=== PATIENT | male | born 1970 | race Caucasian/White ===

== ENCOUNTER 2016-06-25 16:24 | Inpatient (IN) | payer MEDICAID, OTHER ==
[~2016-06-25] VITALS: Ht 165.1 cm; Wt 84.5 kg
--- NOTE | 2016-06-25 22:14 | ERA ---
ER Documentation Chief Complaint Date/Time DATE: 06/25/16 TIME: 22:12 Chief Complaint Right foot infection HPI The patient is a 45-year-old male, presenting to the ER because of chronic right foot infection for more than 3 months. There is right plantar foot ulceration for more than 3 months and he is taking antibiotic clindamycin without response. He now developed an ulcer between the right great toe and right second toe with foul-smelling purulent discharge, swollen and painful for the last 3 days. He went to see his physician who sent him to the ER. He has fever today, denies chills, neck pain, chest pain, abdominal pain, vomiting, dysuria, diarrhea. He does not smoke, drinks socially Past medical history: Diabetes mellitus Past surgical history: None ROS All systems reviewed and are negative except as per history of present illness. Medications Home Meds Reported Medications Amoxicillin/Potassium Clav (Amox-Clav 875-125 mg Tablet) 875-125 mg Tab, 1 TAB PO Q8, #20 TAB 06/25/16 Metformin Hcl* (Metformin Hcl*) 500 Mg Tablet, 500 MG PO WITH BREAKFAST DINNE, # 60 TAB 06/25/16 Glimepiride* (Glimepiride*) 2 Mg Tablet, 2 MG PO WITH BREAKFAST DINNE, TAB 06/25/16 Allergies Allergies: Coded Allergies: No Known Allergy (Unverified , 06/25/16) Physical Exam Vitals Vital Signs Date Time Temp Pulse Resp B/P Pulse Ox O2 Delivery O2 Flow Rate FiO2 06/25/16 23:25 98.3 91 20 119/72 97 Room Air 06/25/16 16:33 102.1 114 20 133/91 99 Physical Exam Const: No acute distress. Head: Atraumatic. Eyes: Normal Conjunctiva. ENT: Normal External Ears, Nose and Mouth. Neck: Full range of motion. No meningismus. Resp: Clear to auscultation bilaterally Cardio: Regular but tachycardic Abd: Soft, non distended, normal bowel sounds, non tender. Skin: No petechiae or rashes. Back: No midline or flank tenderness. Ext: There is a large plantar foot ulceration. There is an ulcer between the right great toe and right second toe with erythema, foul-smelling, purulent discharge. There is no calf tenderness Neur: Awake and alert. No focal deficit Psych: Normal Mood and Affect. Result Diagram: 06/25/16224906/25/163 Results 24 hrs Laboratory Tests Test 06/25/16 22:23 06/25/16 22:50 Alanine Aminotransferase (ALT/SGPT) 29IU/L Albumin 3.9g/dl Albumin/Globulin Ratio 0.92 Alkaline Phosphatase 93IU/L Anion Gap 16 Aspartate Amino Transf (AST/SGOT) 25IU/L Blood Urea Nitrogen 24mg/dl Calcium Level 9.4mg/dl Carbon Dioxide Level 27mmol/L Chloride Level 95mmol/L Creatinine 0.48mg/dl Direct Bilirubin 0.00mg/dl Globulin 4.20g/dl Glucose Level 310mg/dl Indirect Bilirubin 0.6mg/dl Lactic Acid Level 1.5mmol/L Potassium Level 3.7mmol/L Sodium Level 134mmol/L Total Bilirubin 0.6mg/dl Total Protein 8.1g/dl Troponin I < 0.012ng/ml Activated Partial Thromboplast Time 32.6Sec Basophils # 0.010^3/ul Basophils % 0.3% Eosinophils # 0.110^3/ul Eosinophils % 0.4% Erythrocyte Sedimentation Rate 67mm/Hr Hematocrit 43.5% Hemoglobin 15.1g/dl INR International Normalized Ratio 0.98 Lymphocytes # 2.710^3/ul Lymphocytes % 21.1% Mean Corpuscular Hemoglobin 31.7pg Mean Corpuscular Hemoglobin Concent 34.6g/dl Mean Corpuscular Volume 91.5fl Mean Platelet Volume 8.2fl Monocytes # 1.310^3/ul Monocytes % 10.5% Neutrophils # 8.510^3/ul Neutrophils % 67.7% Nucleated Red Blood Cells # 0.010^3/ul Nucleated Red Blood Cells % 0.0/100WBC Platelet Count 79337^3/UL Prothrombin Time 13.0Sec Prothrombin Time Ratio 1.0 Red Blood Count 4.7610^6/ul Red Cell Distribution Width 12.9% White Blood Count 12.610^3/ul Current Medications Medications (Trade) Dose Ordered Sig/Galen Route PRN Reason Start Time Stop Time Status Last Admin Dose Admin Acetaminophen 650 mg 650 mg ONCE ONCE PO 06/25/16 22:30 06/25/16 22:31 DC 06/25/16 22:48 Vancomycin HCl 250 ml @ 125 mls/hr ONCE IVPB 2/2/17 22:30 06/26/16 00:29 06/25/16 22:53 Piperacillin Sod/ Tazobactam Sod (Zosyn 3.375gm/ 100 ml (Pmx)) 100 ml @ 200 mls/hr ONCE ONCE IVPB 06/25/16 22:30 06/25/16 22:59 DC 06/25/16 22:48 Procedures/MDM [place] [id number] Radiology Main Line: [phone] DIAGNOSTIC IMAGING REPORT Patient: MIKEY CINTRON : 1970 Age: 45 Sex: M MR #: [id number] DOS: 06/25/162219 Ordering MD: DOLORES ARANDA MD Location: E/R Room/Bed: PROCEDURE: XR right foot. CLINICAL INDICATION: Sepsis TECHNIQUE: AP, lateral and oblique views of the right foot were obtained. COMPARISON: None. FINDINGS: Mineralization is within normal limits. No fracture or osseous lesion is identified. There is no evidence for dislocation. Joint spaces are preserved. Soft tissue swelling about the plantar forefoot is present with a concave lucent defect along the plantar soft tissues concerning for ulceration and soft tissue swelling predominate about the great toe. There is no evidence of periostitis or osteomyelitis. Atherosclerotic calcification of the interdigital arteries is noted . There is no evidence for radiopaque foreign body. RPTAT:HJJR IMPRESSION: Concern for a plantar ulceration with soft tissue swelling about the forefoot and great toe unable to exclude cellulitis without plain film evidence of periostitis or osteomyelitis of the right foot. Physician Cali Date Time Electronically viewed and signed by Physician Cali on 06/25/2016 23:23 JR/ CC: DOLORES ARANDA MD [place] [id number] Radiology Main Line: [phone] DIAGNOSTIC IMAGING REPORT Patient: MIKEY CINTRON : 1970 Age: 45 Sex: M MR #: [id number] DOS: 06/25/162219 Ordering MD: DOLORES ARANDA MD Location: E/R Room/Bed: PROCEDURE: XR Chest. CLINICAL INDICATION: Sepsis. TECHNIQUE: Portable AP upright view of the chest was obtained. COMPARISON: None. FINDINGS: The cardiomediastinal silhouette is within upper normal limits. The lungs are clear. There is no evidence for pleural effusion, pneumothorax or pulmonary vascular congestion. The osseous structures are intact with no evidence for acute abnormality. RPTAT:HJJR IMPRESSION: No evidence for acute intrathoracic pathology. Physician Cali Date Time Electronically viewed and signed by Physician Cali on 06/25/2016 23:22 JR/ CC: DOLORES ARANDA MD MEDICAL MAKING DECISION: The patient is a 45-year-old male, presenting with acute on chronic right foot cellulitis that failed outpatient therapy, suspicious for abscess and/or osteomyelitis due to elevated ESR. He was treated with Tylenol for fever, vancomycin IV, Zosyn IV for acute on chronic right foot cellulitis. The differential diagnoses considered include but are not limited to cellulitis, abscess, osteomyelitis, foreign body, gangrene EKG: Read by emergency physician Rate/Rhythm: Normal Sinus Rhythm 93 beats per min QRS, ST, T-waves: No ST elevation, no T wave inversion, LVH Impression: Abnormal EKG Departure Diagnosis: Primary Impression: Cellulitis of right foot Condition: Stable Comments I discussed the findings with the patient. I discussed the patient with the on- call hospitalist Dr Moreno who was made aware of the lab, the treatment, the patient condition. The patient is admitted to [facility] at 11:40 PM The patient's blood pressure was elevated (>120/80) but appears stable without evidence of hypertension emergency or urgency. The patient was counseled about the risks of hypertension and urged to pursue outpatient monitoring and therapy within a week after discharge with their primary care physician. DOLORES ARANDA MD Jun 25, 2016 22:14
[2016-06-25] MEDS ORDERED: ACETAMINOPHEN 325 MG TAB PO ONE (22:30)
[2016-06-25] MEDS ORDERED: PIPER-TAZO 3.375 GM IV (PMX) 100 ML IVPB ONE (22:30)
[2016-06-25] MEDS ORDERED: VANCOMYCIN 1 GM (PMX) 250 ML IVPB SCH (22:30)
[2016-06-25] MEDS ORDERED: GLIM2TAB PO (22:35)
[2016-06-25] MEDS ORDERED: METF-382 PO (22:36)
[2016-06-25] MEDS ORDERED: AMOX1TAB10 PO (22:37)
[2016-06-25 23:08] LABS: ALBUMIN 3.9 g/dl (3.3-4.9); CHLORIDE 95 mmol/L (97-110); POTASSIUM 3.7 mmol/L (3.5-5.1); SODIUM 134 mmol/L (135-144)
[2016-06-25 23:08] LABS: INR 0.98; PARTIAL THROMBOPLASTIN TIME 32.6 Sec (25.0-35.0)
[2016-06-25 23:11] LABS: ALANINE AMINOTRANSFERASE 29 IU/L (13-69); ALBUMIN/GLOBULIN RATIO 0.92; ALKALINE PHOSPHATASE 93 IU/L (42-121); ANION GAP 16 (8-16); ASPARTATE AMINO TRANSFERASE 25 IU/L (15-46); BILIRUBIN,INDIRECT 0.6 mg/dl (0-1.1); BILIRUBIN,TOTAL 0.6 mg/dl (0.2-1.3); BLOOD UREA NITROGEN 24 mg/dl (7-20); CALCIUM 9.4 mg/dl (8.4-10.2); CARBON DIOXIDE 27 mmol/L (21-31); CREATININE 0.48 mg/dl (0.61-1.24); GLUCOSE 310 mg/dl (70-220); TOTAL PROTEIN 8.1 g/dl (6.1-8.1)
[2016-06-25 23:21] LABS: BASOPHILS % 0.3 % (0.0-2.0); EOSINOPHILS # 0.1 10^3/ul (0.0-0.5); EOSINOPHILS % 0.4 % (0.0-7.0); HEMATOCRIT 43.5 % (42.0-52.0); HEMOGLOBIN 15.1 g/dl (14.0-18.0); LYMPHOCYTES # 2.7 10^3/ul (0.8-2.9); LYMPHOCYTES % 21.1 % (15.0-51.0); MEAN CORPUSCULAR HEMOGLOBIN 31.7 pg (29.0-33.0); MEAN CORPUSCULAR HGB CONC 34.6 g/dl (32.0-37.0); MEAN CORPUSCULAR VOLUME 91.5 fl (82.0-101.0); MEAN PLATELET VOLUME 8.2 fl (7.4-10.4); MONOCYTE # 1.3 10^3/ul (0.3-0.9); MONOCYTES % 10.5 % (0.0-11.0); NEUTROPHIL # 8.5 10^3/ul (1.6-7.5); NEUTROPHILS % 67.7 % (39.0-77.0); PLATELET COUNT 213 10^3/UL (140-440); RED BLOOD COUNT 4.76 10^6/ul (4.70-6.10); RED CELL DISTRIBUTION WIDTH 12.9 % (11.5-14.5); UNCORRECTED WBC 12.6 10^3/ul (4.8-10.8); WHITE BLOOD COUNT 12.6 10^3/ul (4.8-10.8)
[2016-06-25 23:22] LABS: CONDITION 1
--- NOTE | 2016-06-25 23:22 | RADRPT ---
PROCEDURE: XR Chest. CLINICAL INDICATION: Sepsis. TECHNIQUE: Portable AP upright view of the chest was obtained. COMPARISON: None. FINDINGS: The cardiomediastinal silhouette is within upper normal limits. The lungs are clear. There is no e vidence for pleural effusion, pneumothorax or pulmonary vascular congestion. The osseous structures are intact with no evidence for acute abnormality. RPTAT:HJJR IMPRESSION: No evidence for acute intrathoracic pathology. Physician Cali Date Time Electronically viewed and signed by Physician Cali on 06/25/2016 23:22 JR/
--- NOTE | 2016-06-25 23:23 | RADRPT ---
PROCEDURE: XR right foot. CLINICAL INDICATION: Sepsis TECHNIQUE: AP, lateral and oblique views of the right foot were obtained. COMPARISON: None. FINDINGS: Mineralization is within normal limits. No fracture or osseous lesion is identified. There is no e vidence for dislocation. Joint spaces are preserved. Soft tissue swelling about the plantar forefo ot is present with a concave lucent defect along the plantar soft tissues concerning for ulceration and soft tissue swelling predominate about the great toe. There is no evidence of periostitis or os teomyelitis. Atherosclerotic calcification of the interdigital arteries is noted . There is no evid ence for radiopaque foreign body. RPTAT:HJJR IMPRESSION: Concern for a plantar ulceration with soft tissue swelling about the forefoot and great toe unable t o exclude cellulitis without plain film evidence of periostitis or osteomyelitis of the right foot. Physician Cali Date Time Electronically viewed and signed by Physician Cali on 06/25/2016 23:23 /
[2016-06-25 23:29] LABS: TROPONIN-I < 0.012 ng/ml (0.00-0.12)
[2016-06-26 00:34] VITALS: TEMP 98.6
[2016-06-26 00:56] LABS: ADD UMIC YES; URINE BILIRUBIN (Dip) NEGATIVE (NEGATIVE); URINE BLOOD (Dip) 3+ (NEGATIVE); URINE COLOR YELLOW (YELLOW); URINE GLUCOSE (Dip) >=1000 % (NEGATIVE); URINE KETONES (Dip) 40 (NEGATIVE); URINE LEUKOCYTE ESTERASE (Dip) TRACE (NEGATIVE); URINE NITRITE (Dip) NEGATIVE (NEGATIVE); URINE TOTAL PROTEIN (Dip) 2+ (NEGATIVE); URINE UROBILINOGEN (Dip) 1.0 E.U./dL (0.1-1.0)
[2016-06-26 01:09] LABS: BACTERIA,URINE FEW; SQUAMOUS EPITHELIAL CELL,UR MODERATE
[2016-06-26 01:26] VITALS: Ht 165.1 cm; Wt 84.5 kg
[2016-06-26 01:37] VITALS: BP 129/79; RESP 18
[2016-06-26] MEDS ORDERED: ACCUCHECK XX SCH (02:00)
[2016-06-26] MEDS ORDERED: ACETAMINOPHEN 325 MG TAB PO PRN (02:00)
[2016-06-26] MEDS ORDERED: VANCOMYCIN IV PER PHARMACY XX SCH (02:00)
[2016-06-26] MEDS ORDERED: DEXTROSE 50% 50 ML SYRINGE IV PRN ×2 (02:00)
[2016-06-26] MEDS ORDERED: GLUCAGON 1 MG INJ IM PRN (02:00)
[2016-06-26] MEDS: ACCUCHECK XX SCH (02:00)
[2016-06-26] MEDS ORDERED: GLUCOSE GEL 15 GRAM TUBE BUCCAL PRN (02:00)
[2016-06-26] MEDS ORDERED: GLUCOSE GEL 15 GRAM TUBE PO PRN ×2 (02:00)
[2016-06-26] MEDS ORDERED: ZOLPIDEM 5 MG TAB PO PRN (02:00)
[2016-06-26] MEDS: CEFEPIME 1GM/50 ML (PMX) 50 ML IVPB SCH ×3 (02:24→21:06)
[2016-06-26] MEDS: INSULIN GLARGINE [LANtus] 3 ML PEN SC SCH ×2 (02:30→21:01)
[2016-06-26] MEDS ORDERED: INSULIN ASPART [NOVOLOG] 3 ML PEN SC ONE ×2 (02:30)
[2016-06-26 05:23] LABS: BASOPHILS % 0.3 % (0.0-2.0); EOSINOPHILS # 0.1 10^3/ul (0.0-0.5); EOSINOPHILS % 0.7 % (0.0-7.0); HEMATOCRIT 40.2 % (42.0-52.0); LYMPHOCYTES # 2.6 10^3/ul (0.8-2.9); LYMPHOCYTES % 21.7 % (15.0-51.0); MEAN CORPUSCULAR HGB CONC 34.8 g/dl (32.0-37.0); MEAN CORPUSCULAR VOLUME 92.1 fl (82.0-101.0); MEAN PLATELET VOLUME 7.9 fl (7.4-10.4); MONOCYTE # 1.4 10^3/ul (0.3-0.9); MONOCYTES % 12.3 % (0.0-11.0); NEUTROPHIL # 7.7 10^3/ul (1.6-7.5); PLATELET COUNT 201 10^3/UL (140-440); RED BLOOD COUNT 4.36 10^6/ul (4.70-6.10); RED CELL DISTRIBUTION WIDTH 12.9 % (11.5-14.5); UNCORRECTED WBC 11.8 10^3/ul (4.8-10.8); WHITE BLOOD COUNT 11.8 10^3/ul (4.8-10.8)
[2016-06-26] MEDS: VANCOMYCIN 1.25 GM in SOD CHLORIDE 0.9% 250 ML IVPB SCH ×3 (05:31→22:36)
[2016-06-26 05:42] LABS: ALBUMIN/GLOBULIN RATIO 0.93
[2016-06-26 05:59] LABS: BILIRUBIN,INDIRECT 0.6 mg/dl (0-1.1); BILIRUBIN,TOTAL 0.6 mg/dl (0.2-1.3); CALCIUM 8.8 mg/dl (8.4-10.2); CREATININE 0.45 mg/dl (0.61-1.24); POTASSIUM 3.5 mmol/L (3.5-5.1); TOTAL PROTEIN 6.2 g/dl (6.1-8.1)
[2016-06-26 06:24] LABS: CONDITION 1
[2016-06-26 08:31] VITALS: BP 147/86; RESP 20
[2016-06-26] MEDS: INSULIN ASPART [NOVOLOG] 3 ML PEN SC SCH ×7 (09:47→21:03)
[2016-06-26] MEDS: HEPARIN 5,000 UNIT/0.5 ML SYG SC SCH ×2 (09:49→21:02)
--- NOTE | 2016-06-26 10:06 | HP ---
Date/Time of Note Date/Time of Note DATE: 06/26/16 TIME: 10:01 Assessment/Plan Lines/Catheters IV Catheter Type (from Nrsg): Saline Lock Assessment/Plan Assessment/Plan IMPRESSION 1. Sepsis 2/2 right foot cellulitis/ulcer 2. Diabetes PLAN Abx ID consult Pain mgmt ID consult f/u culture results Insulin for Diabetes HPI/ROS Admit Date/Time Admit Date/Time Jun 25, 2016 at 23:43 Hx of Present Illness The patient is a 45-year-old male, presenting to the ER because of chronic right foot infection for more than 3 months. There is right plantar foot ulceration for more than 3 months and he is taking antibiotic clindamycin without response. He now developed an ulcer between the right great toe and right second toe with foul-smelling purulent discharge, swollen and painful for the last 3 days. He went to see his physician who sent him to the ER. He has fever today, denies chills, neck pain, chest pain, abdominal pain, vomiting, dysuria, diarrhea. IN ER: He was febrile with a temp of 102 and his WBC was 12K. Right foot xray showed Concern for a plantar ulceration with soft tissue swelling about the forefoot and great toe unable to exclude cellulitis without plain film evidence of periostitis or osteomyelitis of the right foot. PMH/Family/Social Social History Smoking Status: Never smoker Exam/Review of Systems Vital Signs Vitals Vital Signs Date Time Temp Pulse Resp B/P Pulse Ox O2 Delivery O2 Flow Rate FiO2 06/26/16 08:31 98.6 86 20 147/86 98 06/26/16 00:34 Room Air Intake and Output 06/25/16 06/25/16 06/26/16 15:00 23:00 07:00 Intake Total 300 ml Balance 300 ml Exam Constitutional: alert, oriented, well developed Head: atraumatic, normocephalic Eyes: EOMI, PERRL Respiratory: clear to auscultation, normal air movement Cardiovascular: other (tavhycardic) Gastrointestinal: non-tender, soft Extremities: other (right foot swelling, ulceration) Labs Result Diagram: 06/26/1640906/26/16409 Medications Medications Current Medications Cefepime HCl (Maxipime 1gm/50 ml (Pmx)) 50 ml @ 100 mls/hr Q12 IVPB Last administered on 06/26/16 02:24; Admin Dose 100 MLS/HR; Start 06/26/16 at 02:00 Heparin Sodium (Porcine) (Heparin (5000 Units/0.5 ml)) 5,000 unit BID SC Last administered on 06/26/16 09:49; Admin Dose 5,000 UNIT; Start 06/26/16 at 09:00 Zolpidem Tartrate (Ambien) 10 mg HS PRN PO INSOMNIA; Start 06/26/16 at 02:00 Acetaminophen (Tylenol Tab) 650 mg Q6H PRN PO PAIN AND OR ELEVATED TEMP; Start 06/26/16 at 02:00 Insulin Glargine (Lantus) 20 unit DAILY@20 SC Last administered on 06/26/16 02: 30; Admin Dose 20 UNIT; Start 06/26/16 at 02:00 Diagnostic Test (Pha) 1 ea 1 ea 02 XX ; Start 06/26/16 at 02:00 Vancomycin HCl/ Sodium Chloride (Vancocin/NS) 250 ml @ 83.333 mls/ hr Q8H IVPB Last administered on 06/26/16 05:31; Admin Dose 83.333 MLS/HR; Start 06/26/16 at 06:00 Miscellaneous Information 1 ea NOTE XX ; Start 06/26/16 at 02:00 Glucose (Glutose) 15 gm Q15M PRN PO DECREASED GLUCOSE; Start 06/26/16 at 02:00 Glucose (Glutose) 22.5 gm Q15M PRN PO DECREASED GLUCOSE; Start 06/26/16 at 02:00 Dextrose (D50w Syringe) 25 ml Q15M PRN IV DECREASED GLUCOSE; Start 06/26/16 at 02:00 Dextrose (D50w Syringe) 50 ml Q15M PRN IV DECREASED GLUCOSE; Start 06/26/16 at 02:00 Glucagon (Glucagen) 1 mg Q15M PRN IM DECREASED GLUCOSE; Start 06/26/16 at 02:00 Glucose (Glutose) 15 gm Q15M PRN BUCCAL DECREASED GLUCOSE; Start 06/26/16 at 02: 00 Influenza Virus Vaccine (Fluzone) 0.5 ml ONCE ONCE IM* ; Start 06/28/16 at 09:00 ; Stop 06/28/16 at 09:01 ANNMARIE HUBER MD Jun 26, 2016 10:06
--- NOTE | 2016-06-26 16:41 | PN ---
Date/Time of Note Date/Time of Note DATE: 06/26/16 TIME: 16:25 Assessment/Plan VTE Prophylaxis VTE Prophylaxis Intervention: heparin Lines/Catheters IV Catheter Type (from Nrsg): Peripheral IV Assessment/Plan Assessment/Plan 1. Right foot cellulitis/ulcer, on antibiotics, Dr. Tineo consult 2. Diabetes mellitus, on ISS and lantus Subjective 24 Hr Interval Summary Free Text/Dictation afebrile Exam/Review of Systems Vital Signs Vitals Vital Signs Date Time Temp Pulse Resp B/P Pulse Ox O2 Delivery O2 Flow Rate FiO2 06/26/16 08:31 98.6 86 20 147/86 98 06/26/16 00:34 Room Air Intake and Output 06/25/16 06/25/16 06/26/16 15:00 23:00 07:00 Intake Total 300 ml Balance 300 ml Exam Constitutional: alert, oriented, well developed Psych: nl mood/affect, no complaints Head: atraumatic, normocephalic Eyes: EOMI, nl conjunctiva, nl lids ENMT: nl external ears & nose, nl lips & teeth, nl nasal mucosa & septum Neck: non-tender, supple Respiratory: clear to auscultation, normal air movement, No congested cough, No crackles/rales, No diminished breath sounds, No intercostal retraction, No labored breathing, No respirations, No tactile fremitus, No wheezing Cardiovascular: nl pulses, regular rate and rhythm, No S3, No S4, No bruits, No diastolic murmur, No edema, No gallop, No irregular rhythm, No jugular venous distention (JVD), No murmurs/extra sounds, No rub, No systolic murmur Gastrointestinal: nl liver, spleen, non-tender, soft, No ascites, No bowel sounds, No distended, No firm, No hepatomegaly, No mass , No rebound or guarding, No splenomegaly, No surgical scars, No tender Musculoskeletal: other (right foot wound) Extremities: other (right foot wound) Neurological: DIRECTOR MEDICAL II-XII intact, nl mental status, nl speech, nl strength Skin: nl turgor, rash or lesions Lymph: nl lymph nodes Results Result Diagram: 06/26/16 0410 06/26/16 0410 Results 24 hrs Laboratory Tests Test 06/25/16 22:23 06/25/16 22:50 06/26/16 00:20 06/26/16 01:32 Alanine Aminotransferase (ALT/SGPT) 29 Albumin 3.9 Albumin/Globulin Ratio 0.92 Alkaline Phosphatase 93 Anion Gap 16 Aspartate Amino Transf (AST/SGOT) 25 Blood Urea Nitrogen 24 H Calcium Level 9.4 Carbon Dioxide Level 27 Chloride Level 95 L Creatinine 0.48 L Direct Bilirubin 0.00 Globulin 4.20 H Glucose Level 310 H Indirect Bilirubin 0.6 Lactic Acid Level 1.5 Potassium Level 3.7 Sodium Level 134 L Total Bilirubin 0.6 Total Protein 8.1 Troponin I < 0.012 Activated Partial Thromboplast Time 32.6 Basophils # 0.0 Basophils % 0.3 Eosinophils # 0.1 Eosinophils % 0.4 Erythrocyte Sedimentation Rate 67 H Hematocrit 43.5 Hemoglobin 15.1 INR International Normalized Ratio 0.98 Lymphocytes # 2.7 Lymphocytes % 21.1 Mean Corpuscular Hemoglobin 31.7 Mean Corpuscular Hemoglobin Concent 34.6 Mean Corpuscular Volume 91.5 Mean Platelet Volume 8.2 Monocytes # 1.3 H Monocytes % 10.5 Neutrophils # 8.5 H Neutrophils % 67.7 Nucleated Red Blood Cells # 0.0 Nucleated Red Blood Cells % 0.0 Platelet Count 213 Prothrombin Time 13.0 Prothrombin Time Ratio 1.0 Red Blood Count 4.76 Red Cell Distribution Width 12.9 White Blood Count 12.6 H Urine Bacteria FEW Urine Bilirubin NEGATIVE Urine Clarity HAZY Urine Color YELLOW Urine Glucose >=1000 Urine Hemoglobin 3+ H Urine Ketones 40 Urine Leukocyte Esterase TRACE H Urine Microscopic RBC 5-10 Urine Microscopic WBC 5-10 Urine Nitrite NEGATIVE Urine Specific [place] 1.025 Urine Squamous Epithelial Cells MODERATE Urine Total Protein 2+ H Urine Urobilinogen 1.0 E.U./dL Urine pH 5.5 Bedside Glucose 265 H Test 06/26/16 01:55 06/26/16 04:10 06/26/16 07:38 06/26/16 11:58 Lactic Acid Level 1.1 1.3 Alanine Aminotransferase (ALT/SGPT) 30 Albumin 3.0 L Albumin/Globulin Ratio 0.93 Alkaline Phosphatase 67 Anion Gap 16 Aspartate Amino Transf (AST/SGOT) 18 Basophils # 0.0 Basophils % 0.3 Blood Urea Nitrogen 22 H Calcium Level 8.8 Carbon Dioxide Level 27 Chloride Level 99 Creatinine 0.45 L Direct Bilirubin 0.00 Eosinophils # 0.1 Eosinophils % 0.7 Globulin 3.20 Glucose Level 239 H Hematocrit 40.2 L Hemoglobin 14.0 Hemoglobin A1c 10.4 H Indirect Bilirubin 0.6 Lymphocytes # 2.6 Lymphocytes % 21.7 Mean Corpuscular Hemoglobin 32.0 Mean Corpuscular Hemoglobin Concent 34.8 Mean Corpuscular Volume 92.1 Mean Platelet Volume 7.9 Monocytes # 1.4 H Monocytes % 12.3 H Neutrophils # 7.7 H Neutrophils % 65.0 Nucleated Red Blood Cells # 0.0 Nucleated Red Blood Cells % 0.0 Platelet Count 201 Potassium Level 3.5 Red Blood Count 4.36 L Red Cell Distribution Width 12.9 Sodium Level 138 Total Bilirubin 0.6 Total Protein 6.2 # White Blood Count 11.8 H Bedside Glucose 247 H 305 H Medications Medications Current Medications Cefepime HCl (Maxipime 1gm/50 ml (Pmx)) 50 ml @ 100 mls/hr Q12 IVPB Last administered on 06/26/16 10:01; Admin Dose 100 MLS/HR; Start 06/26/16 at 02:00 Heparin Sodium (Porcine) (Heparin (5000 Units/0.5 ml)) 5,000 unit BID SC Last administered on 06/26/16 09:49; Admin Dose 5,000 UNIT; Start 06/26/16 at 09:00 Zolpidem Tartrate (Ambien) 10 mg HS PRN PO INSOMNIA; Start 06/26/16 at 02:00 Acetaminophen (Tylenol Tab) 650 mg Q6H PRN PO PAIN AND OR ELEVATED TEMP; Start 06/26/16 at 02:00 Insulin Glargine (Lantus) 20 unit DAILY@20 SC Last administered on 06/26/16 02: 30; Admin Dose 20 UNIT; Start 06/26/16 at 02:00 Diagnostic Test (Pha) 1 ea 1 ea 02 XX ; Start 06/26/16 at 02:00 Vancomycin HCl/ Sodium Chloride (Vancocin/NS) 250 ml @ 83.333 mls/ hr Q8H IVPB Last administered on 06/26/16 13:17; Admin Dose 83.333 MLS/HR; Start 06/26/16 at 06:00 Miscellaneous Information 1 ea NOTE XX ; Start 06/26/16 at 02:00 Glucose (Glutose) 15 gm Q15M PRN PO DECREASED GLUCOSE; Start 06/26/16 at 02:00 Glucose (Glutose) 22.5 gm Q15M PRN PO DECREASED GLUCOSE; Start 06/26/16 at 02:00 Dextrose (D50w Syringe) 25 ml Q15M PRN IV DECREASED GLUCOSE; Start 06/26/16 at 02:00 Dextrose (D50w Syringe) 50 ml Q15M PRN IV DECREASED GLUCOSE; Start 06/26/16 at 02:00 Glucagon (Glucagen) 1 mg Q15M PRN IM DECREASED GLUCOSE; Start 06/26/16 at 02:00 Glucose (Glutose) 15 gm Q15M PRN BUCCAL DECREASED GLUCOSE; Start 06/26/16 at 02: 00 Influenza Virus Vaccine (Fluzone) 0.5 ml ONCE ONCE IM* ; Start 06/28/16 at 09:00 ; Stop 06/28/16 at 09:01 Miscellaneous Information (*Rx Drug Level Order Reminder*) VANCO TROUGH @ 0, 500 ON... ONCE ONCE XX ; Start 06/27/16 at 05:00; Stop 06/27/16 at 05:01 ENMA SELBY MD Jun 26, 2016 16:35
[2016-06-26 20:37] VITALS: BP 133/84; RESP 19
[2016-06-27] MEDS: ACCUCHECK XX SCH (02:00)
[2016-06-27] MEDS: VANCOMYCIN 1.5 GM in SOD CHLORIDE 0.9% 250 ML IVPB SCH ×3 (06:29→21:43)
--- NOTE | 2016-06-27 07:29 | CONS ---
DATE OF ADMISSION: 06/25/2016 DATE OF CONSULTATION: 06/26/2016 TYPE OF CONSULTATION: Infectious Disease. REASON FOR CONSULTATION: Antibiotic management. HISTORY OF PRESENT ILLNESS: Emery Santoyo is a 45-year-old male who presented to the emerge ncy room with chronic right foot infection and is being seen for antibiotic management. His problems include: 1. Adult-onset diabetes mellitus, insulin-dependent. 2. Chronic foot infection which he has had for more than 3 months. Patient has a right plantar foot ulceration. He was taking clindamycin without response. He has now developed an ulcer of the right great toe and right second toe with foul smelling purulent drainage , swollen and painful for the last 3 days. He has fevers today. He does not having any chills, supriya st pain, abdominal pain, nausea or vomiting. In the emergency room, his temperature was 102. His white count was 12.6, H and H 15.1 and 43.5, an d platelet count of 213,000. Today, his white count is 11.8. His BUN and creatinine are 22/0.45. His urine is trace leukocyte esterase, 5 to 10 white cells per high-power field, his chest x-ray alireza ws no evidence for pathology. His x-ray of the foot shows concern for plantar ulceration with soft tissue swelling about the forefoot and great toe. Unable to exclude cellulitis with plain film evid ence or periostitis or osteomyelitis of the right foot. PAST MEDICAL HISTORY: Operations as outlined. FAMILY HISTORY: Noncontributory. SOCIAL HISTORY: Does not smoke, drink or abuse drugs. ALLERGIES: NONE TO PENICILLIN, SULFA OR FOODS. MEDICATIONS: Per chart, reviewed. REVIEW OF SYSTEMS: As per HPI. PHYSICAL EXAMINATION: GENERAL: The patient is a well-developed, well-nourished male, alert, responsive, in no acute distr ess. VITAL SIGNS: Stable. He is afebrile. SKIN: Without generalized rash. HEENT: Within normal limits. NECK: Supple. LYMPH NODES: None palpable. CHEST: Decreased breath sounds at the bases. HEART: Without murmur or gallop. ABDOMEN: Soft, nontender, without organosplenomegaly or masses. EXTREMITIES: Without cyanosis, clubbing, or edema. RECTAL AND GENITAL: Deferred. SKIN: As noted, he has a plantar ulcer of the right foot with ulceration between the right great toe and right second toe with foul- smelling purulent discharge. IMPRESSION AND PLAN: The patient was begun on vancomycin and cefepime. He probably could use an MR I to delineate whether he has any evidence of osteomyelitis. His Gram stain of foot is pending. Cu lture is pending. I will dictate my findings to the hospitalists. He should be seen by podiatry as well. Dictated By: RUDI POMPA MD, JD/PEDRO Conf#: [id number] DID#: [id number]
[2016-06-27 08:14] VITALS: BP 131/79; RESP 21
[2016-06-27] MEDS: HYDROCODONE/APAP (5/325) TAB PO PRN (08:51)
[2016-06-27] MEDS: HEPARIN 5,000 UNIT/0.5 ML SYG SC SCH ×2 (08:51→20:19)
[2016-06-27] MEDS: INSULIN ASPART [NOVOLOG] 3 ML PEN SC SCH ×7 (08:52→20:19)
[2016-06-27] MEDS: CEFEPIME 1GM/50 ML (PMX) 50 ML IVPB SCH (09:00)
[2016-06-27] MEDS: FLUCONAZOLE 100 MG TAB PO SCH (14:04)
--- NOTE | 2016-06-27 14:46 | PN ---
Date/Time of Note Date/Time of Note DATE: 06/27/16 TIME: 14:44 Assessment/Plan VTE Prophylaxis VTE Prophylaxis Intervention: other Lines/Catheters IV Catheter Type (from Nrs): Saline Lock Assessment/Plan Problems: (1) Cellulitis of right foot Status: Acute Assessment/Plan Diabetes mellitus type 2; adjusting regimen to get under control. Please note part of this is due to the loculated infection in the right foot Subjective 24 Hr Interval Summary Constitutional: no complaints (Denies fever chills or sweats) Exam/Review of Systems Vital Signs Vitals Vital Signs Date Time Temp Pulse Resp B/P Pulse Ox O2 Delivery O2 Flow Rate FiO2 06/27/16 08:14 98.9 88 21 131/79 94 06/26/16 00:34 Room Air Intake and Output 06/26/16 06/26/16 06/27/16 15:00 23:00 07:00 Intake Total 1220 ml 450 ml Balance 1220 ml 450 ml Exam Constitutional: alert, oriented Neck: non-tender, supple Respiratory: clear to auscultation, normal air movement Cardiovascular: nl pulses, regular rate and rhythm Gastrointestinal: nl liver, spleen, non-tender, soft Results Result Diagram: 06/26/16 0410 06/26/16 0410 Results 24 hrs Laboratory Tests Test 06/26/16 16:48 06/26/16 20:54 06/27/16 02:15 06/27/16 05:08 Bedside Glucose 295 H 240 H 240 H Vancomycin Level Trough 7.6 L Test 06/27/16 07:43 06/27/16 11:16 Bedside Glucose 212 317 H Medications Medications Current Medications Cefepime HCl (Maxipime 1gm/50 ml (Pmx)) 50 ml @ 100 mls/hr Q12 IVPB Last administered on 06/27/16 09:00; Admin Dose 100 MLS/HR; Start 06/26/16 at 02:00 Heparin Sodium (Porcine) (Heparin (5000 Units/0.5 ml)) 5,000 unit BID SC Last administered on 06/27/16 08:51; Admin Dose 5,000 UNIT; Start 06/26/16 at 09:00 Zolpidem Tartrate (Ambien) 10 mg HS PRN PO INSOMNIA; Start 06/26/16 at 02:00 Acetaminophen (Tylenol Tab) 650 mg Q6H PRN PO PAIN AND OR ELEVATED TEMP; Start 06/26/16 at 02:00 Insulin Glargine (Lantus) 20 unit DAILY@20 SC Last administered on 06/26/16 21: 01; Admin Dose 20 UNIT; Start 06/26/16 at 02:00 Diagnostic Test (Pha) (Accucheck) 1 ea 02 XX Last administered on 06/27/16 02: 00; Admin Dose 1 EA; Start 06/26/16 at 02:00 Miscellaneous Information 1 ea NOTE XX ; Start 06/26/16 at 02:00 Glucose (Glutose) 15 gm Q15M PRN PO DECREASED GLUCOSE; Start 06/26/16 at 02:00 Glucose (Glutose) 22.5 gm Q15M PRN PO DECREASED GLUCOSE; Start 06/26/16 at 02:00 Dextrose (D50w Syringe) 25 ml Q15M PRN IV DECREASED GLUCOSE; Start 06/26/16 at 02:00 Dextrose (D50w Syringe) 50 ml Q15M PRN IV DECREASED GLUCOSE; Start 06/26/16 at 02:00 Glucagon (Glucagen) 1 mg Q15M PRN IM DECREASED GLUCOSE; Start 06/26/16 at 02:00 Glucose (Glutose) 15 gm Q15M PRN BUCCAL DECREASED GLUCOSE; Start 06/26/16 at 02: 00 Influenza Virus Vaccine (Fluzone) 0.5 ml ONCE ONCE IM* ; Start 06/28/16 at 09:00 ; Stop 06/28/16 at 09:01 Acetaminophen/ Hydrocodone Bitart 1 tab 1 tab Q4H PRN PO pain Last administered on 06/27/16 08:51; Admin Dose 1 TAB; Start 06/26/16 at 17:00 Vancomycin HCl/ Sodium Chloride (Vancocin/NS) 250 ml @ 83.333 mls/ hr Q8H IVPB Last administered on 06/27/16 14:04; Admin Dose 83.333 MLS/HR; Start 06/27/16 at 06:00 Fluconazole (Diflucan) 100 mg DAILY PO Last administered on 06/27/16 14:04; Admin Dose 100 MG; Start 06/27/16 at 13:00 ADA HAMILTON MD Jun 27, 2016 14:46
[2016-06-27] MEDS: metroNIDAZOLE 500 MG TAB PO SCH ×2 (15:18→22:42)
[2016-06-27] MEDS: metFORMIN 500 MG TAB PO SCH (17:41)
--- NOTE | 2016-06-27 20:10 | CONS ---
Date/Time of Note Date/Time of Note DATE: 06/27/16 TIME: 20:05 Assessment/Plan Assessment/Plan Chief Complaint/Hosp Course Subjective: Alert, feels ok, no fevers, nad Micro: wound cx + Strep/St aureus, urine cx + C albicans Abx: Vancomycin, Cefepime, Flagyl PHYSICAL EXAMINATION: GENERAL: The patient is a well-developed, obese male, alert, responsive, in no acute distress. VITAL SIGNS: Stable. He is afebrile. SKIN: Without generalized rash. HEENT: Within normal limits. NECK: Supple. LYMPH NODES: None palpable. CHEST: Decreased breath sounds at the bases. HEART: Without murmur or gallop. ABDOMEN: Soft, nontender, + BT. EXTREMITIES: Plantar ulcer of the right foot with ulceration between the right great toe and right second toe with foul- smelling purulent discharge. Assessment: 1. SIRS 2. R foot cellulitis/gangrene, possible OM 3. DM Plan: Change Cefepime to Rocephin, continue other abx, swab nares for MRSA, f/u final cx, pending MRI, podiatry rec-s [facility] staff Problems: Consultation Date/Type/Reason Admit Date/Time Jun 25, 2016 at 23:43 Initial Consult Date Type of Consultation: ID [id number] HR Interval Summary Constitutional: no complaints Exam/Review of Systems Vital Signs Vitals Vital Signs Date Time Temp Pulse Resp B/P Pulse Ox O2 Delivery O2 Flow Rate FiO2 06/27/16 08:14 98.9 88 21 131/79 94 06/26/16 00:34 Room Air Intake and Output 06/26/16 06/26/16 06/27/16 15:00 23:00 07:00 Intake Total 1220 ml 450 ml Balance 1220 ml 450 ml Results Result Diagram: 06/26/16 0410 06/26/16 0410 Results 24 hrs Laboratory Tests Test 06/26/16 20:54 06/27/16 02:15 06/27/16 05:08 06/27/16 07:43 Bedside Glucose 240 H 240 H 212 Vancomycin Level Trough 7.6 L Test 06/27/16 11:16 06/27/16 15:35 06/27/16 17:36 06/27/16 19:38 Bedside Glucose 317 H 212 258 H Hepatitis B Surface Antigen NEGATIVE Hepatitis C Antibody NEGATIVE Medications Medications Current Medications Cefepime HCl (Maxipime 1gm/50 ml (Pmx)) 50 ml @ 100 mls/hr Q12 IVPB Last administered on 06/27/16 09:00; Admin Dose 100 MLS/HR; Start 06/26/16 at 02:00 Heparin Sodium (Porcine) (Heparin (5000 Units/0.5 ml)) 5,000 unit BID SC Last administered on 06/27/16 08:51; Admin Dose 5,000 UNIT; Start 06/26/16 at 09:00 Zolpidem Tartrate (Ambien) 10 mg HS PRN PO INSOMNIA; Start 06/26/16 at 02:00 Acetaminophen (Tylenol Tab) 650 mg Q6H PRN PO PAIN AND OR ELEVATED TEMP; Start 06/26/16 at 02:00 Insulin Glargine (Lantus) 20 unit DAILY@20 SC Last administered on 06/26/16 21: 01; Admin Dose 20 UNIT; Start 06/26/16 at 02:00 Diagnostic Test (Pha) (Accucheck) 1 ea 02 XX Last administered on 06/27/16 02: 00; Admin Dose 1 EA; Start 06/26/16 at 02:00 Miscellaneous Information 1 ea NOTE XX ; Start 06/26/16 at 02:00 Glucose (Glutose) 15 gm Q15M PRN PO DECREASED GLUCOSE; Start 06/26/16 at 02:00 Glucose (Glutose) 22.5 gm Q15M PRN PO DECREASED GLUCOSE; Start 06/26/16 at 02:00 Dextrose (D50w Syringe) 25 ml Q15M PRN IV DECREASED GLUCOSE; Start 06/26/16 at 02:00 Dextrose (D50w Syringe) 50 ml Q15M PRN IV DECREASED GLUCOSE; Start 06/26/16 at 02:00 Glucagon (Glucagen) 1 mg Q15M PRN IM DECREASED GLUCOSE; Start 06/26/16 at 02:00 Glucose (Glutose) 15 gm Q15M PRN BUCCAL DECREASED GLUCOSE; Start 06/26/16 at 02: 00 Influenza Virus Vaccine (Fluzone) 0.5 ml ONCE ONCE IM* ; Start 06/28/16 at 09:00 ; Stop 06/28/16 at 09:01 Acetaminophen/ Hydrocodone Bitart 1 tab 1 tab Q4H PRN PO pain Last administered on 06/27/16 08:51; Admin Dose 1 TAB; Start 06/26/16 at 17:00 Vancomycin HCl/ Sodium Chloride (Vancocin/NS) 250 ml @ 83.333 mls/ hr Q8H IVPB Last administered on 06/27/16 14:04; Admin Dose 83.333 MLS/HR; Start 06/27/16 at 06:00 Fluconazole (Diflucan) 100 mg DAILY PO Last administered on 06/27/16 14:04; Admin Dose 100 MG; Start 06/27/16 at 13:00 Metronidazole (Flagyl) 500 mg Q8 PO Last administered on 06/27/16 15:18; Admin Dose 500 MG; Start 06/27/16 at 15:00 HUNTER DIETZ NP Jun 27, 2016 20:10
[2016-06-27 20:18] VITALS: BP 130/83; RESP 15
[2016-06-27] MEDS: INSULIN GLARGINE [LANtus] 3 ML PEN SC SCH (20:18)
--- NOTE | 2016-06-27 20:20 | CONS ---
Date/Time of Note Date/Time of Note DATE: 06/27/16 TIME: 20:07 Assessment/Plan Assessment/Plan Problems: (1) Foot abscess, right (2) Diabetes, polyneuropathy (3) Right foot pain (4) Cellulitis of right foot Status: Acute Additional Assessment/Plan Patient will require incision and drainage of the right foot abscess with debridement. Patient will be scheduled. Preoperative orders will be written once schedule is determined. For now, continue daily dressing change with dry dressing. Nonweightbearing on the right foot. Thank you again for involving me in the care of this patient. If you have any questions regarding this case, please feel free to contact me at pager: or reach me at mobile: [phone]. Consultation Date/Type/Reason Admit Date/Time Jun 25, 2016 at 23:43 Date of Consultation: Jun 27, 2016 Type of Consultation: Foot and ankle surgery Hx of Present Illness Thank you very much for involving me in the care of this patient. This is a 45- year-old male patient who presented to the emergency room secondary to chronic right foot infection for the past 3 months. Patient reports pain in the right foot. He says that he was being treated by antibiotics which did not help. He reports recent fever and chills. Denies trauma to the right foot. Patient's past medical history includes diabetes mellitus. As per history of present illness. Constitutional: no complaints (Denies fever chills or sweats) Psychological: nl mood/affect, no complaints Past Medical History As per history of present illness. Past Surgical History As per history of present illness. Social History Smoking Status: Never smoker Exam/Review of Systems Vital Signs Vitals Vital Signs Date Time Temp Pulse Resp B/P Pulse Ox O2 Delivery O2 Flow Rate FiO2 06/27/16 08:14 98.9 88 21 131/79 94 06/26/16 00:34 Room Air Intake and Output 06/26/16 06/26/16 06/27/16 15:00 23:00 07:00 Intake Total 1220 ml 450 ml Balance 1220 ml 450 ml Exam Patient was seen at bedside. He is laying supine in no acute distress. Right foot exam shows erythema and edema of the forefoot with an open wound on the plantar first MPJ. There is fluctuance noted in the second and third MPJ areas more plantarly. There is tenderness to exam. There is malodor present. There is no active pus and no bleeding noted. Dorsalis pedis is not palpable and posterior tibial pulses weak. Left foot pedal pulses are palpable. Bilaterally patient has decreased sensation to sharp dull vibratory and temperature stimuli. Labs and imaging were reviewed. Results Result Diagram: 06/26/16 0410 06/26/16 0410 Results 24 hrs Laboratory Tests Test 06/26/16 20:54 06/27/16 02:15 06/27/16 05:08 06/27/16 07:43 Bedside Glucose 240 H 240 H 212 Vancomycin Level Trough 7.6 L Test 06/27/16 11:16 06/27/16 15:35 06/27/16 17:36 06/27/16 19:38 Bedside Glucose 317 H 212 258 H Hepatitis B Surface Antigen NEGATIVE Medications Medications Current Medications Cefepime HCl (Maxipime 1gm/50 ml (Pmx)) 50 ml @ 100 mls/hr Q12 IVPB Last administered on 06/27/16 09:00; Admin Dose 100 MLS/HR; Start 06/26/16 at 02:00 Heparin Sodium (Porcine) (Heparin (5000 Units/0.5 ml)) 5,000 unit BID SC Last administered on 06/27/16 08:51; Admin Dose 5,000 UNIT; Start 06/26/16 at 09:00 Zolpidem Tartrate (Ambien) 10 mg HS PRN PO INSOMNIA; Start 06/26/16 at 02:00 Acetaminophen (Tylenol Tab) 650 mg Q6H PRN PO PAIN AND OR ELEVATED TEMP; Start 06/26/16 at 02:00 Insulin Glargine (Lantus) 20 unit DAILY@20 SC Last administered on 06/26/16 21: 01; Admin Dose 20 UNIT; Start 06/26/16 at 02:00 Diagnostic Test (Pha) (Accucheck) 1 ea 02 XX Last administered on 06/27/16 02: 00; Admin Dose 1 EA; Start 06/26/16 at 02:00 Miscellaneous Information 1 ea NOTE XX ; Start 06/26/16 at 02:00 Glucose (Glutose) 15 gm Q15M PRN PO DECREASED GLUCOSE; Start 06/26/16 at 02:00 Glucose (Glutose) 22.5 gm Q15M PRN PO DECREASED GLUCOSE; Start 06/26/16 at 02:00 Dextrose (D50w Syringe) 25 ml Q15M PRN IV DECREASED GLUCOSE; Start 06/26/16 at 02:00 Dextrose (D50w Syringe) 50 ml Q15M PRN IV DECREASED GLUCOSE; Start 06/26/16 at 02:00 Glucagon (Glucagen) 1 mg Q15M PRN IM DECREASED GLUCOSE; Start 06/26/16 at 02:00 Glucose (Glutose) 15 gm Q15M PRN BUCCAL DECREASED GLUCOSE; Start 06/26/16 at 02: 00 Influenza Virus Vaccine (Fluzone) 0.5 ml ONCE ONCE IM* ; Start 06/28/16 at 09:00 ; Stop 06/28/16 at 09:01 Acetaminophen/ Hydrocodone Bitart 1 tab 1 tab Q4H PRN PO pain Last administered on 06/27/16 08:51; Admin Dose 1 TAB; Start 06/26/16 at 17:00 Vancomycin HCl/ Sodium Chloride (Vancocin/NS) 250 ml @ 83.333 mls/ hr Q8H IVPB Last administered on 06/27/16 14:04; Admin Dose 83.333 MLS/HR; Start 06/27/16 at 06:00 Fluconazole (Diflucan) 100 mg DAILY PO Last administered on 06/27/16 14:04; Admin Dose 100 MG; Start 06/27/16 at 13:00 Metronidazole (Flagyl) 500 mg Q8 PO Last administered on 06/27/16 15:18; Admin Dose 500 MG; Start 06/27/16 at 15:00 CHARLIE GLEASON DPM Jun 27, 2016 20:17
[2016-06-27] MEDS: CEFTRIAXONE 1 GM/50 ML (PMX) 50 ML IVPB SCH (20:54)
[2016-06-28] MEDS: ACCUCHECK XX SCH (02:00)
[2016-06-28] MEDS: metroNIDAZOLE 500 MG TAB PO SCH ×3 (05:30→21:28)
[2016-06-28] MEDS: VANCOMYCIN 1.5 GM in SOD CHLORIDE 0.9% 250 ML IVPB SCH ×2 (05:30→15:12)
[2016-06-28 07:43] VITALS: BP 142/91; RESP 16
[2016-06-28] MEDS ORDERED: INFLUENZA VIRUS VACCINE 0.5 ML (DISPENSING) IM* ONE (09:00)
[2016-06-28] MEDS: INSULIN ASPART [NOVOLOG] 3 ML PEN SC SCH ×6 (09:15→20:33)
[2016-06-28] MEDS: HEPARIN 5,000 UNIT/0.5 ML SYG SC SCH ×2 (09:16→20:30)
[2016-06-28] MEDS: metFORMIN 500 MG TAB PO SCH ×2 (09:17→17:14)
[2016-06-28] MEDS: HYDROCODONE/APAP (5/325) TAB PO PRN ×2 (09:17→21:28)
[2016-06-28] MEDS: FLUCONAZOLE 100 MG TAB PO SCH (09:17)
[2016-06-28 12:10] VITALS: BP 112/69; PULSE 91; RESP 18
--- NOTE | 2016-06-28 12:22 | PN ---
Date/Time of Note Date/Time of Note DATE: 06/28/16 TIME: 12:20 Assessment/Plan VTE Prophylaxis VTE Prophylaxis Intervention: other Lines/Catheters IV [facility] Type [facility]from [facility] Saline Lock Urinary Cath still in place: No Assessment/Plan Problems: (1) Osteomyelitis of right foot Status: Chronic Comment: Patient reports she has been under treatment for this bone infection of the foot for over a year. He is fearful of an amputation. I have advised him that he needs to have surgical cleanup of this. Qualifiers: Chronicity: chronic Qualified Code: M86.671 - Chronic osteomyelitis of right foot (2) Foot abscess, right Status: Acute Comment: For surgery most likely in the morning (3) Diabetes, polyneuropathy Status: Chronic Comment: His diabetic control is adequate. He does however have neuropathy. Qualifiers: Diabetes mellitus type: type 2 Qualified Code: E11.42 - Diabetic polyneuropathy associated with type 2 diabetes mellitus Subjective 24 Hr Interval Summary Free Text/Dictation Patient reports that he is not having significant pain. Constitutional: no complaints (No fevers chills or sweats) Respiratory: no complaints (No shortness of breath) Cardiovascular: no complaints Gastrointestinal: no complaints Genitourinary: no complaints Exam/Review of Systems Vital Signs Vitals Vital Signs Date Time Temp Pulse Resp B/P Pulse Ox O2 Delivery O2 Flow Rate FiO2 06/28/16 12:10 91 18 112/69 94 Room Air 06/28/16 07:43 98.4 Intake and Output 06/27/16 06/27/16 06/28/16 15:00 23:00 07:00 Intake Total 300 ml 1420 ml 1210 ml Balance 300 ml 1420 ml 1210 ml Exam Constitutional: alert, oriented Neck: non-tender, supple Respiratory: clear to auscultation, normal air movement Cardiovascular: nl pulses, regular rate and rhythm Results Result Diagram: 06/26/16 0410 06/26/16 0410 Results 24 hrs Laboratory Tests Test 06/27/16 15:35 06/27/16 17:36 06/27/16 19:38 06/28/16 01:07 Hepatitis B Surface Antigen NEGATIVE Hepatitis C Antibody NEGATIVE Bedside Glucose 212 258 H 255 H Test 06/28/16 02:11 06/28/16 08:36 Bedside Glucose 233 H 200 Medications Medications Current Medications Heparin Sodium (Porcine) (Heparin (5000 Units/0.5 ml)) 5,000 unit BID SC Last administered on 06/28/16 09:16; Admin Dose 5,000 UNIT; Start 06/26/16 at 09:00 Zolpidem Tartrate (Ambien) 10 mg HS PRN PO INSOMNIA Last administered on 22:49; Admin Dose 10 MG; Start 06/26/16 at 02:00 Acetaminophen (Tylenol Tab) 650 mg Q6H PRN PO PAIN AND OR ELEVATED TEMP; Start 06/26/16 at 02:00 Insulin Glargine (Lantus) 20 unit DAILY@20 SC Last administered on 06/27/16 20: 18; Admin Dose 20 UNIT; Start 06/26/16 at 02:00 Diagnostic Test (Pha) (Accucheck) 1 ea 02 XX Last administered on 06/27/16 02: 00; Admin Dose 1 EA; Start 06/26/16 at 02:00 Miscellaneous Information 1 ea NOTE XX ; Start 06/26/16 at 02:00 Glucose (Glutose) 15 gm Q15M PRN PO DECREASED GLUCOSE; Start 06/26/16 at 02:00 Glucose (Glutose) 22.5 gm Q15M PRN PO DECREASED GLUCOSE; Start 06/26/16 at 02:00 Dextrose (D50w Syringe) 25 ml Q15M PRN IV DECREASED GLUCOSE; Start 06/26/16 at 02:00 Dextrose (D50w Syringe) 50 ml Q15M PRN IV DECREASED GLUCOSE; Start 06/26/16 at 02:00 Glucagon (Glucagen) 1 mg Q15M PRN IM DECREASED GLUCOSE; Start 06/26/16 at 02:00 Glucose (Glutose) 15 gm Q15M PRN BUCCAL DECREASED GLUCOSE; Start 06/26/16 at 02: 00 Acetaminophen/ Hydrocodone Bitart 1 tab 1 tab Q4H PRN PO pain Last administered on 06/28/16 09:17; Admin Dose 1 TAB; Start 06/26/16 at 17:00 Vancomycin HCl/ Sodium Chloride (Vancocin/NS) 250 ml @ 83.333 mls/ hr Q8H IVPB Last administered on 06/28/16 05:30; Admin Dose 83.333 MLS/HR; Start 06/27/16 at 06:00 Fluconazole (Diflucan) 100 mg DAILY PO Last administered on 06/28/16 09:17; Admin Dose 100 MG; Start 06/27/16 at 13:00 Metronidazole 500 mg 500 mg Q8 PO Last administered on 06/28/16 05:30; Admin Dose 500 MG; Start 06/27/16 at 15:00 Ceftriaxone Sodium (Rocephin) 50 ml @ 100 mls/hr Q24H IVPB Last administered on 06/27/16 20:54; Admin Dose 100 MLS/HR; Start 06/27/16 at 20:30 Miscellaneous Information (*Rx Drug Level Order Reminder*) VANCOMYCIN TROUGH 06/28 AT 2100 ONCE ONCE XX ; Start 06/28/16 at 21:00; Stop 06/28/16 at 21:01 ADA HAMILTON MD Jun 28, 2016 12:22
--- NOTE | 2016-06-28 16:04 | RADRPT ---
PROCEDURE: MRI OF THE RIGHT FOOT. CLINICAL INDICATION: Cellulitis. Evaluate for osteomyelitis. TECHNIQUE: Multiple MRI images of the right foot were obtained in multiple planes utilizing multip le pulse sequences. Images were interpreted on the high-resolution PACS system. COMPARISON: Radiographs from 06/25/2016 FINDINGS: There is a small skin ulcer along the plantar aspect of the foot over the first metatarsophalangeal joint and first proximal phalanx. There is edema within the subcutaneous soft tissues along the plan tar aspect of the foot over the first toe but no discrete drainable abscess. There is mild bone mar row edema within the first proximal and distal phalanges with slight hazy dark T1 signal within the proximal phalanx. There is mild deformity with cortical thickening and scalloping along the plantar aspect of the first proximal phalanx as seen on sagittal images 08-09. The first interphalangeal j oint is intact. There is partial thickness chondral loss within the first metatarsophalangeal joint with osseous spu rring. The collateral ligaments are intact. No significant joint effusion is present. There is hammertoe deformity involving the lesser metatarsophalangeal joints with dorsal subluxation of the proximal phalanges relative to the metatarsals. The collateral ligaments are intact. There is no significant joint effusion. The tarsometatarsal joints are intact. There is mild bone marrow edema within the cuboid and latera l cuneiform. Mild marrow edema within the navicular is also present. The Lisfranc's ligament is in tact. The naviculocuneiform, calcaneocuboid, and talonavicular joints are intact. There is increased signal with fatty atrophy of the muscles around the forefoot and midfoot. There is also edema within the subcutaneous soft tissues of the dorsal foot. There is no Ontiveros's neuroma. No plantar fibroma is visualized. RPTAT: QQ IMPRESSION: 1. Small skin ulcer within the subcutaneous soft tissues along the plantar aspect of the foot over the first metatarsophalangeal joint and proximal phalanx with edema but no drainable abscess. Bone m arrow edema with slightly abnormal marrow signal and cortical irregularity/scalloping along the plan tar aspect of the first proximal phalanx which can be seen with osteomyelitis; the mild deformity of the proximal phalanx can be seen with chronic osteomyelitis in which an acute on chronic osteomyeli tis may be present. There may also be early osteomyelitis involving the first distal phalanx as wel l. 2. 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 3. Hammertoe deformity within the lesser metatarsophalangeal joints. 4. Mild contusion or stress-related changes within the cuboid, navicular, and lateral cuneiform. .Kasie Lara MD, MD Date Time Electronically viewed and signed by .Kasie Lara MD, on 06/28/2016 16:04 .T/
--- NOTE | 2016-06-28 18:08 | CONS ---
Date/Time of Note Date/Time of Note DATE: 06/28/16 TIME: 18:05 Assessment/Plan Assessment/Plan Chief Complaint/Hosp Course Subjective: Alert, feels ok, no fevers, nad Micro: wound cx + Strep/MSSA, urine cx + C albicans Abx: Vancomycin, Rocephin, Flagyl PHYSICAL EXAMINATION: GENERAL: The patient is a well-developed, obese male, alert, responsive, in no acute distress. VITAL SIGNS: Stable. He is afebrile. SKIN: Without generalized rash. HEENT: Within normal limits. NECK: Supple. LYMPH NODES: None palpable. CHEST: Decreased breath sounds at the bases. HEART: Without murmur or gallop. ABDOMEN: Soft, nontender, + BT. EXTREMITIES: Plantar ulcer of the right foot with ulceration between the right great toe and right second toe with foul- smelling purulent discharge. Assessment: 1. SIRS 2. R foot cellulitis/gangrene, possible OM per MRI 3. DM Plan: Clinically stable, dc Vanco, continue Rocephin, await for debridement, f/ u podiatry rec-s [facility] staff Problems: Consultation Date/Type/Reason Admit Date/Time Jun 25, 2016 at 23:43 Type of Consultation: ID Exam/Review of Systems Vital Signs Vitals Vital Signs Date Time Temp Pulse Resp B/P Pulse Ox O2 Delivery O2 Flow Rate FiO2 06/28/16 12:10 91 18 112/69 94 Room Air 06/28/16 07:43 98.4 Intake and Output 06/27/16 06/27/16 06/28/16 15:00 23:00 07:00 Intake Total 300 ml 1420 ml 1210 ml Balance 300 ml 1420 ml 1210 ml Results Result Diagram: 06/26/16 0410 06/26/16 0410 Results 24 hrs Laboratory Tests Test 06/27/16 19:38 06/28/16 01:07 06/28/16 02:11 06/28/16 08:36 Bedside Glucose 258 H 255 H 233 H 200 Test 06/28/16 12:21 06/28/16 17:10 Bedside Glucose 251 H 219 Medications Medications Current Medications Heparin Sodium (Porcine) (Heparin (5000 Units/0.5 ml)) 5,000 unit BID SC Last administered on 06/28/16 09:16; Admin Dose 5,000 UNIT; Start 06/26/16 at 09:00 Zolpidem Tartrate (Ambien) 10 mg HS PRN PO INSOMNIA Last administered on 22:49; Admin Dose 10 MG; Start 06/26/16 at 02:00 Acetaminophen (Tylenol Tab) 650 mg Q6H PRN PO PAIN AND OR ELEVATED TEMP; Start 06/26/16 at 02:00 Diagnostic Test (Pha) (Accucheck) 1 ea 02 XX Last administered on 06/27/16 02: 00; Admin Dose 1 EA; Start 06/26/16 at 02:00 Miscellaneous Information 1 ea NOTE XX ; Start 06/26/16 at 02:00 Glucose (Glutose) 15 gm Q15M PRN PO DECREASED GLUCOSE; Start 06/26/16 at 02:00 Glucose (Glutose) 22.5 gm Q15M PRN PO DECREASED GLUCOSE; Start 06/26/16 at 02:00 Dextrose (D50w Syringe) 25 ml Q15M PRN IV DECREASED GLUCOSE; Start 06/26/16 at 02:00 Dextrose (D50w Syringe) 50 ml Q15M PRN IV DECREASED GLUCOSE; Start 06/26/16 at 02:00 Glucagon (Glucagen) 1 mg Q15M PRN IM DECREASED GLUCOSE; Start 06/26/16 at 02:00 Glucose (Glutose) 15 gm Q15M PRN BUCCAL DECREASED GLUCOSE; Start 06/26/16 at 02: 00 Acetaminophen/ Hydrocodone Bitart 1 tab 1 tab Q4H PRN PO pain Last administered on 06/28/16 09:17; Admin Dose 1 TAB; Start 06/26/16 at 17:00 Vancomycin HCl/ Sodium Chloride (Vancocin/NS) 250 ml @ 83.333 mls/ hr Q8H IVPB Last administered on 06/28/16 15:12; Admin Dose 83.333 MLS/HR; Start 06/27/16 at 06:00 Fluconazole (Diflucan) 100 mg DAILY PO Last administered on 06/28/16 09:17; Admin Dose 100 MG; Start 06/27/16 at 13:00 Metronidazole 500 mg 500 mg Q8 PO Last administered on 06/28/16 15:11; Admin Dose 500 MG; Start 06/27/16 at 15:00 Ceftriaxone Sodium (Rocephin) 50 ml @ 100 mls/hr Q24H IVPB Last administered on 06/27/16t 20:54; Admin Dose 100 MLS/HR; Start 06/27/16 at 20:30 Miscellaneous Information (*Rx Drug Level Order Reminder*) VANCOMYCIN TROUGH 06/28 AT 2100 ONCE ONCE XX ; Start 06/28/16 at 21:00; Stop 06/28/16 at 21:01 Insulin Glargine (Lantus) 25 unit DAILY@20 SC ; Start 06/28/16 at 20:00 HUNTER DIETZ [employer] Jun 28, 2016 18:08
[2016-06-28] MEDS ORDERED: INSULIN GLARGINE [LANtus] 3 ML PEN SC SCH (20:00)
[2016-06-28 20:20] VITALS: BP 112/73; RESP 18
[2016-06-28] MEDS: CEFTRIAXONE 1 GM/50 ML (PMX) 50 ML IVPB SCH (20:27)
[2016-06-29] MEDS: ACCUCHECK XX SCH (01:48)
[2016-06-29] MEDS: metroNIDAZOLE 500 MG TAB PO SCH ×3 (06:09→21:32)
[2016-06-29 06:42] LABS: CREATININE 0.5 mg/dl (0.61-1.24)
[2016-06-29 08:23] VITALS: BP 138/88; RESP 18
[2016-06-29] MEDS: metFORMIN 500 MG TAB PO SCH ×2 (08:59→17:32)
[2016-06-29] MEDS: FLUCONAZOLE 100 MG TAB PO SCH (08:59)
[2016-06-29] MEDS: INSULIN ASPART [NOVOLOG] 3 ML PEN SC SCH ×7 (09:00→20:20)
[2016-06-29] MEDS: HEPARIN 5,000 UNIT/0.5 ML SYG SC SCH ×2 (09:01→20:21)
--- NOTE | 2016-06-29 11:32 | CONS ---
Date/Time of Note Date/Time of Note DATE: 06/29/16 TIME: 11:31 Assessment/Plan Assessment/Plan Chief Complaint/Hosp Course Subjective: Alert, feels ok, no fevers, nad Micro: wound cx + Strep/MSSA, urine cx + C albicans Abx: Diflucan, Rocephin, Flagyl PHYSICAL EXAMINATION: GENERAL: The patient is a well-developed, obese male, alert, responsive, in no acute distress. VITAL SIGNS: Stable. He is afebrile. SKIN: Without generalized rash. HEENT: Within normal limits. NECK: Supple. LYMPH NODES: None palpable. CHEST: Decreased breath sounds at the bases. HEART: Without murmur or gallop. ABDOMEN: Soft, nontender, + BT. EXTREMITIES: Plantar ulcer of the right foot with ulceration between the right great toe and right second toe with foul- smelling purulent discharge. Assessment: 1. SIRS 2. R foot cellulitis/gangrene, possible OM per MRI 3. DM Plan: Clinically stable, continue Rocephin, await for debridement, f/u podiatry rec-s [facility] staff Problems: Consultation Date/Type/Reason Admit Date/Time Jun 25, 2016 at 23:43 Type of Consultation: ID Exam/Review of Systems Vital Signs Vitals Vital Signs Date Time Temp Pulse Resp B/P Pulse Ox O2 Delivery O2 Flow Rate FiO2 06/29/16 08:23 98.4 83 18 138/88 98 06/28/16 12:10 Room Air Intake and Output 06/28/16 06/28/16 06/29/16 15:00 23:00 07:00 Intake Total 250 ml 1380 ml 540 ml Balance 250 ml 1380 ml 540 ml Results Result Diagram: 06/26/16 0410 06/29/16 0525 Results 24 hrs Laboratory Tests Test 06/28/16 12:21 06/28/16 17:10 06/28/16 19:40 06/28/16 20:55 Bedside Glucose 251 H 219 214 Vancomycin Level Trough 15.6 Test 06/29/16 01:58 06/29/16 05:25 06/29/16 08:05 Bedside Glucose 213 204 Blood Urea Nitrogen 18 Creatinine 0.50 L Medications Medications Current Medications Heparin Sodium (Porcine) (Heparin (5000 Units/0.5 ml)) 5,000 unit BID SC Last administered on 06/29/16 09:01; Admin Dose 5,000 UNIT; Start 06/26/16 at 09:00 Zolpidem Tartrate (Ambien) 10 mg HS PRN PO INSOMNIA Last administered on 22:49; Admin Dose 10 MG; Start 06/26/16 at 02:00 Acetaminophen (Tylenol Tab) 650 mg Q6H PRN PO PAIN AND OR ELEVATED TEMP Last administered on 06/28/16 20:27; Admin Dose 650 MG; Start 06/26/16 at 02:00 Diagnostic Test (Pha) (Accucheck) 1 ea 02 XX Last administered on 06/27/16 02: 00; Admin Dose 1 EA; Start 06/26/16 at 02:00 Miscellaneous Information 1 ea NOTE XX ; Start 06/26/16 at 02:00 Glucose (Glutose) 15 gm Q15M PRN PO DECREASED GLUCOSE; Start 06/26/16 at 02:00 Glucose (Glutose) 22.5 gm Q15M PRN PO DECREASED GLUCOSE; Start 06/26/16 at 02:00 Dextrose (D50w Syringe) 25 ml Q15M PRN IV DECREASED GLUCOSE; Start 06/26/16 at 02:00 Dextrose (D50w Syringe) 50 ml Q15M PRN IV DECREASED GLUCOSE; Start 06/26/16 at 02:00 Glucagon (Glucagen) 1 mg Q15M PRN IM DECREASED GLUCOSE; Start 06/26/16 at 02:00 Glucose (Glutose) 15 gm Q15M PRN BUCCAL DECREASED GLUCOSE; Start 06/26/16 at 02: 00 Acetaminophen/ Hydrocodone Bitart ([place] (5/325)) 1 tab Q4H PRN PO pain Last administered on 06/28/16 21:28; Admin Dose 1 TAB; Start 06/26/16 at 17:00 Fluconazole (Diflucan) 100 mg DAILY PO Last administered on 06/29/16 08:59; Admin Dose 100 MG; Start 06/27/16 at 13:00 Metronidazole 500 mg 500 mg Q8 PO Last administered on 06/29/16 06:09; Admin Dose 500 MG; Start 06/27/16 at 15:00 Ceftriaxone Sodium (Rocephin) 50 ml @ 100 mls/hr Q24H IVPB Last administered on 06/28/16 20:27; Admin Dose 100 MLS/HR; Start 06/27/16 at 20:30 Insulin Glargine (Lantus) 25 unit DAILY@20 SC Last administered on 06/28/16 20: 32; Admin Dose 25 UNIT; Start 06/28/16 at 20:00 HUNTER DIETZ NP Jun 29, 2016 11:32
--- NOTE | 2016-06-29 14:26 | PN ---
Date/Time of Note Date/Time of Note DATE: 06/29/16 TIME: 14:21 Assessment/Plan VTE Prophylaxis VTE Prophylaxis Intervention: heparin Lines/Catheters IV [facility]from [facility] Saline Lock Urinary Cath still in place: No Assessment/Plan Chief Complaint/Hosp Course Assessment and plan 1. Osteomyelitis of the right foot Infectious disease and podiatry has been consulted Continue broad-spectrum IV antibiotics Follow podiatry recommendations (2) Foot abscess, right Plan for I&D as per podiatry (3) Diabetes, polyneuropathy Continue blood glucose monitoring and treatment Consider Neurontin (4) Diabetes mellitus type: type 2 Continue low-carb diet, insulin and insulin sliding scale We will continue monitor patient closely for recommendation management treatment as clinical course Problems: Subjective 24 Hr Interval Summary Free Text/Dictation Patient continues to complain of having right foot discomfort Denies any chest pain or shortness of breath No nausea vomiting diarrhea Exam/Review of Systems Vital Signs Vitals Vital Signs Date Time Temp Pulse Resp B/P Pulse Ox O2 Delivery O2 Flow Rate FiO2 06/29/16 08:23 98.4 83 18 138/88 98 06/28/16 12:10 Room Air Intake and Output 06/28/16 06/28/16 06/29/16 15:00 23:00 07:00 Intake Total 250 ml 1380 ml 540 ml Balance 250 ml 1380 ml 540 ml Exam General: The patient is well-developed, Not in acute distress. HEENT: Atraumatic, normocephalic. The pupils are equal and round . Neck: Supple with full range of motion. Chest: Normal expansion of the thorax during inspiration Lungs: Clear to auscultation bilaterally Heart: Normal S1-S2, Regular rhythm and rate. Abdomen: Soft , nontender, nondistended , bowel sounds are present. Extremities: Right foot erythema and swelling, right foot is dressed with dry dressing, +1 edema no cyanosis Neurologic: Normal mental status,The patient is awake, alert and oriented . Results Result Diagram: 06/26/16 0410 06/29/16 0525 Results 24 hrs Laboratory Tests Test 06/28/16 17:10 06/28/16 19:40 06/28/16 20:55 06/29/16 01:58 Bedside Glucose 219 214 213 Vancomycin Level Trough 15.6 Test 06/29/16 05:25 06/29/16 08:05 06/29/16 11:58 Blood Urea Nitrogen 18 Creatinine 0.50 L Bedside Glucose 204 256 H Medications Medications Current Medications Heparin Sodium (Porcine) (Heparin (5000 Units/0.5 ml)) 5,000 unit BID SC Last administered on 06/29/16 09:01; Admin Dose 5,000 UNIT; Start 06/26/16 at 09:00 Zolpidem Tartrate (Ambien) 10 mg HS PRN PO INSOMNIA Last administered on 22:49; Admin Dose 10 MG; Start 06/26/16 at 02:00 Acetaminophen (Tylenol Tab) 650 mg Q6H PRN PO PAIN AND OR ELEVATED TEMP Last administered on 06/28/16 20:27; Admin Dose 650 MG; Start 06/26/16 at 02:00 Diagnostic Test (Pha) (Accucheck) 1 ea 02 XX Last administered on 06/27/16 02: 00; Admin Dose 1 EA; Start 06/26/16 at 02:00 Miscellaneous Information 1 ea NOTE XX ; Start 06/26/16 at 02:00 Glucose (Glutose) 15 gm Q15M PRN PO DECREASED GLUCOSE; Start 06/26/16 at 02:00 Glucose (Glutose) 22.5 gm Q15M PRN PO DECREASED GLUCOSE; Start 06/26/16 at 02:00 Dextrose (D50w Syringe) 25 ml Q15M PRN IV DECREASED GLUCOSE; Start 06/26/16 at 02:00 Dextrose (D50w Syringe) 50 ml Q15M PRN IV DECREASED GLUCOSE; Start 06/26/16 at 02:00 Glucagon (Glucagen) 1 mg Q15M PRN IM DECREASED GLUCOSE; Start 06/26/16 at 02:00 Glucose (Glutose) 15 gm Q15M PRN BUCCAL DECREASED GLUCOSE; Start 06/26/16 at 02: 00 Acetaminophen/ Hydrocodone Bitart ([place] (5/325)) 1 tab Q4H PRN PO pain Last administered on 06/28/16 21:28; Admin Dose 1 TAB; Start 06/26/16 at 17:00 Fluconazole (Diflucan) 100 mg DAILY PO Last administered on 06/29/16 08:59; Admin Dose 100 MG; Start 06/27/16 at 13:00 Metronidazole 500 mg 500 mg Q8 PO Last administered on 06/29/16 06:09; Admin Dose 500 MG; Start 06/27/16 at 15:00 Ceftriaxone Sodium (Rocephin) 50 ml @ 100 mls/hr Q24H IVPB Last administered on 06/28/16 20:27; Admin Dose 100 MLS/HR; Start 06/27/16 at 20:30 Insulin Glargine (Lantus) 28 unit DAILY@20 SC ; Start 06/29/16 at 20:00 DARYL KNOTT MD Jun 29, 2016 14:26
[2016-06-29] MEDS: SODIUM HYPOCHLORITE 0.125% 473 ML BTL IRR SCH (17:34)
[2016-06-29 19:36] VITALS: BP 133/83; RESP 20
[2016-06-29] MEDS ORDERED: INSULIN GLARGINE [LANtus] 3 ML PEN SC SCH (20:00)
--- NOTE | 2016-06-29 20:01 | RADRPT ---
PROCEDURE: US Lower extremity Arteries. CLINICAL INDICATION: Right foot abscess/ulcer TECHNIQUE: Multiple longitudinal and transverse images of the bilateral lower extremity arteries w ere obtained with velazquez scale and color Doppler imaging. COMPARISON: No prior studies are available for comparison. FINDINGS: Peak systolic velocities are as follows Location RightLeft waveforms [id number] cm/jow567 cm/sec triphasic/triphasic PSFA50 cm/sec62 cm/sec triphasic/triphasic [id number] cm/sec74 cm/sec triphasic/triphasic DSFA89 cm/sec66 cm/sec triphasic/triphasic POP90 cm/sec68 cm/sec triphasic/triphasic [id number] cm/sec61 cm/sec triphasic/triphasic DPA97 cm/sec41 cm/sec biphasic/a biphasic Ankle brachial indices are as follows: Right: Posterior tibial artery - 1.1; dorsalis pedis artery - 0.9 Left: Posterior tibial artery - 1.1; dorsalis pedis artery - 1.1 RPTAT:[facility] IMPRESSION: 1. Despite a triphasic wave form, the mildly elevated right posterior tibial artery velocity raises concern for a stenosis in the range of 50-69%. 2. No evidence of arterial occlusion for either lower extremity. 3. Normal bilateral ankle brachial indices. Physician Cali Date Time Electronically viewed and signed by Physician Cali on 06/29/2016 20:01 /
[2016-06-29] MEDS: CEFTRIAXONE 1 GM/50 ML (PMX) 50 ML IVPB SCH (20:15)
[2016-06-30] MEDS: ACCUCHECK XX SCH (02:00)
[2016-06-30] MEDS: metroNIDAZOLE 500 MG TAB PO SCH ×4 (05:14→22:45)
[2016-06-30 05:56] LABS: POTASSIUM 3.9 mmol/L (3.5-5.1)
[2016-06-30 05:58] LABS: CREATININE 0.53 mg/dl (0.61-1.24)
[2016-06-30 05:59] LABS: BASOPHIL # 0.1 10^3/ul (0.0-0.1); BASOPHILS % 0.4 % (0.0-2.0); CALCIUM 9.3 mg/dl (8.4-10.2); EOSINOPHILS # 0.3 10^3/ul (0.0-0.5); EOSINOPHILS % 2.7 % (0.0-7.0); HEMATOCRIT 41.1 % (42.0-52.0); HEMOGLOBIN 14.5 g/dl (14.0-18.0); LYMPHOCYTES % 23.6 % (15.0-51.0); MEAN CORPUSCULAR HGB CONC 35.3 g/dl (32.0-37.0); MEAN CORPUSCULAR VOLUME 90.6 fl (82.0-101.0); MEAN PLATELET VOLUME 7.8 fl (7.4-10.4); MONOCYTE # 0.8 10^3/ul (0.3-0.9); MONOCYTES % 6.7 % (0.0-11.0); NEUTROPHIL # 8.4 10^3/ul (1.6-7.5); NEUTROPHILS % 66.6 % (39.0-77.0); PLATELET COUNT 357 10^3/UL (140-440); RED BLOOD COUNT 4.53 10^6/ul (4.70-6.10); RED CELL DISTRIBUTION WIDTH 12.6 % (11.5-14.5); UNCORRECTED WBC 12.6 10^3/ul (4.8-10.8); WHITE BLOOD COUNT 12.6 10^3/ul (4.8-10.8)
[2016-06-30] MEDS: HYDROCODONE/APAP (5/325) TAB PO PRN (06:00)
[2016-06-30] MEDS ORDERED: PROPOFOL 200 MG INJ ONE (07:00)
[2016-06-30] MEDS ORDERED: LIDOCAINE 2% (SDV) 5 ML INJ ONE (07:00)
[2016-06-30 07:07] LABS: CONDITION 1
[2016-06-30 08:00] VITALS: BP 131/87; PULSE 85; RESP 18
[2016-06-30] MEDS: metFORMIN 500 MG TAB PO SCH ×2 (09:01→17:30)
[2016-06-30] MEDS: FLUCONAZOLE 100 MG TAB PO SCH (09:01)
[2016-06-30] MEDS: HEPARIN 5,000 UNIT/0.5 ML SYG SC SCH ×2 (09:02→22:45)
[2016-06-30] MEDS: SODIUM HYPOCHLORITE 0.125% 473 ML BTL IRR SCH (09:03)
[2016-06-30] MEDS: INSULIN ASPART [NOVOLOG] 3 ML PEN SC SCH ×7 (09:47→21:00)
--- NOTE | 2016-06-30 13:59 | PN ---
Date/Time of Note Date/Time of Note DATE: 06/30/16 TIME: 13:56 Assessment/Plan VTE Prophylaxis VTE Prophylaxis Intervention: heparin Lines/Catheters IV [facility] Saline Lock Urinary Cath still in place: No Assessment/Plan Chief Complaint/Hosp Course Assessment and plan 1. Osteomyelitis of the right foot Infectious disease and podiatry has been consulted Continue broad-spectrum IV antibiotics Plan for I&D with +/- possible amputation as per podiatry this afternoon (2) Foot abscess, right Plan for I&D as per podiatry (3) Diabetes, polyneuropathy Continue blood glucose monitoring and treatment Consider Neurontin (4) Diabetes mellitus type: type 2 Continue low-carb diet, insulin and insulin sliding scale We will continue monitor patient closely for recommendation management treatment as clinical course Problems: Subjective 24 Hr Interval Summary Free Text/Dictation Patient continues to complain of having right foot discomfort No nausea vomiting diarrhea N.p.o. secondary to upcoming procedure Exam/Review of Systems Vital Signs Vitals Vital Signs Date Time Temp Pulse Resp B/P Pulse Ox O2 Delivery O2 Flow Rate FiO2 06/30/16 08:00 98.4 85 18 131/87 95 Room Air Intake and Output 06/29/16 06/29/16 06/30/16 15:00 23:00 07:00 Intake Total 1050 ml 400 ml Balance 1050 ml 400 ml Exam General: The patient is well-developed, Not in acute distress. HEENT: Atraumatic, normocephalic. The pupils are equal and round . Neck: Supple with full range of motion. Chest: Normal expansion of the thorax during inspiration Lungs: Clear to auscultation bilaterally Heart: Normal S1-S2, Regular rhythm and rate. Abdomen: Soft , nontender, nondistended , bowel sounds are present. Extremities: Right foot erythema and cellulitis, second through fourth toe cellulitis and swelling, no edema no cyanosis Neurologic: Normal mental status,The patient is awake, alert and oriented . Results Result Diagram: 06/30/16 0435 06/30/16 0435 Results 24 hrs Laboratory Tests Test 06/29/16 16:51 06/29/16 19:46 06/30/16 02:25 06/30/16 04:35 Bedside Glucose 179 225 H 167 Anion Gap 13 Basophils # 0.1 Basophils % 0.4 Blood Urea Nitrogen 12 Calcium Level 9.3 Carbon Dioxide Level 33 H Chloride Level 96 L Creatinine 0.53 L Eosinophils # 0.3 Eosinophils % 2.7 Glucose Level 188 Hematocrit 41.1 L Hemoglobin 14.5 Lymphocytes # 3.0 H Lymphocytes % 23.6 Mean Corpuscular Hemoglobin 32.0 Mean Corpuscular Hemoglobin Concent 35.3 Mean Corpuscular Volume 90.6 Mean Platelet Volume 7.8 Monocytes # 0.8 Monocytes % 6.7 Neutrophils # 8.4 H Neutrophils % 66.6 Nucleated Red Blood Cells # 0.0 Nucleated Red Blood Cells % 0.0 Platelet Count 357 # Potassium Level 3.9 Red Blood Count 4.53 L Red Cell Distribution Width 12.6 Sodium Level 138 White Blood Count 12.6 H Test 06/30/16 07:50 06/30/16 11:55 Bedside Glucose 225 H 209 Medications Medications Current Medications Heparin Sodium (Porcine) (Heparin (5000 Units/0.5 ml)) 5,000 unit BID SC Last administered on 06/30/16 09:02; Admin Dose 5,000 UNIT; Start 06/26/16 at 09:00 Zolpidem Tartrate (Ambien) 10 mg HS PRN PO INSOMNIA Last administered on 22:49; Admin Dose 10 MG; Start 06/26/16 at 02:00 Acetaminophen (Tylenol Tab) 650 mg Q6H PRN PO PAIN AND OR ELEVATED TEMP Last administered on 06/28/16 20:27; Admin Dose 650 MG; Start 06/26/16 at 02:00 Diagnostic Test (Pha) (Accucheck) 1 ea 02 XX Last administered on 06/27/16 02: 00; Admin Dose 1 EA; Start 06/26/16 at 02:00 Miscellaneous Information 1 ea NOTE XX ; Start 06/26/16 at 02:00 Glucose (Glutose) 15 gm Q15M PRN PO DECREASED GLUCOSE; Start 06/26/16 at 02:00 Glucose (Glutose) 22.5 gm Q15M PRN PO DECREASED GLUCOSE; Start 06/26/16 at 02:00 Dextrose (D50w Syringe) 25 ml Q15M PRN IV DECREASED GLUCOSE; Start 06/26/16 at 02:00 Dextrose (D50w Syringe) 50 ml Q15M PRN IV DECREASED GLUCOSE; Start 06/26/16 at 02:00 Glucagon (Glucagen) 1 mg Q15M PRN IM DECREASED GLUCOSE; Start 06/26/16 at 02:00 Glucose (Glutose) 15 gm Q15M PRN BUCCAL DECREASED GLUCOSE; Start 06/26/16 at 02: 00 Acetaminophen/ Hydrocodone Bitart ([place] (5/325)) 1 tab Q4H PRN PO pain Last administered on 06/30/16 06:00; Admin Dose 1 TAB; Start 06/26/16 at 17:00 Fluconazole 100 mg 100 mg DAILY PO Last administered on 06/30/16 09:01; Admin Dose 100 MG; Start 06/27/16 at 13:00 Ceftriaxone Sodium (Rocephin) 50 ml @ 100 mls/hr Q24H IVPB Last administered on 06/29/16 20:15; Admin Dose 100 MLS/HR; Start 06/27/16 at 20:30 Insulin Glargine (Lantus) 28 unit DAILY@20 SC Last administered on 06/29/16 20: 18; Admin Dose 28 UNIT; Start 06/29/16 at 20:00 Sodium Hypochlorite (Dakin'S (1/4 Strength)) 1 applic DAILY IRR Last administered on 06/30/16 09:03; Admin Dose 1 APPLIC; Start 06/29/16 at 17:00 Metronidazole (Flagyl) 500 mg Q8 PO Last administered on 06/30/16 05:14; Admin Dose 500 MG; Start 06/29/16 at 22:00 DARYL KNOTT MD Jun 30, 2016 13:59
[2016-06-30] MEDS ORDERED: BUPIVACAINE 0.25% (MPF) 30 ML INJ ONE (19:32)
[2016-06-30] MEDS ORDERED: BUPIVACAINE 0.25%/EPI (SDV) 30 ML INJ ONE (19:32)
--- NOTE | 2016-06-30 19:37 | PN ---
Date/Time of Note Date/Time of Note DATE: 06/30/16 TIME: 19:36 Assessment/Plan Lines/Catheters IV Catheter Type (from Nrs): Saline Lock [place] in Place (from Nrsg): No Assessment/Plan Problems: (1) Diabetes, polyneuropathy Status: Chronic Qualifiers: Diabetes mellitus type: type 2 Qualified Code: E11.42 - Diabetic polyneuropathy associated with type 2 diabetes mellitus (2) Right foot pain (3) Foot abscess, right Status: Acute Comment: Patient is scheduled for incision and drainage or right foot abscess with cellulitis today. (4) Osteomyelitis of right foot Status: Chronic Qualifiers: Chronicity: chronic Qualified Code: M86.671 - Chronic osteomyelitis of right foot (5) Cellulitis of right foot Status: Acute Subjective 24 Hr Interval Summary Patient is scheduled for surgery today for incision and drainage of his right foot abscess with cellulitis. Patient reports continued pain and swelling of his right foot. Denies fever or chills. Constitutional: no complaints Pain Control: well controlled Exam/Review of Systems Vital Signs Vitals Vital Signs Date Time Temp Pulse Resp B/P Pulse Ox O2 Delivery O2 Flow Rate FiO2 07/02/16 08:18 98.5 80 20 142/83 98 06/30/16 22:30 Room Air Intake and Output 07/02/16 07/02/16 07/03/16 14:59 22:59 06:59 Intake Total 640 ml Balance 640 ml Exam Free Text/Dictation Moderately obese male in no acute distress. Open wound right foot first interspace with necrosis of soft tissue. The wound is 2 cm deep and there is forefoot edema and erythema. No other changes noted on exam. Results Result Diagram: 07/02/16 0515 07/02/16 0515 CHARLIE GLEASON DPM Jun 30, 2016 19:37
--- NOTE | 2016-06-30 19:38 | HPN ---
Date/Time of Note Date/Time of Note DATE: 06/30/16 TIME: 19:38 Interval H&P Admission Note Pt. seen H&P reviewed: No system changes CHARLIE GLEASON DPM Jun 30, 2016 19:38
[2016-06-30] MEDS ORDERED: INSULIN GLARGINE [LANtus] 3 ML PEN SC SCH (20:00)
[2016-06-30] MEDS ORDERED: MIDAZOLAM 1 MG/ML 2 ML INJ ONE (20:02)
[2016-06-30] MEDS ORDERED: FENTAnyl 50 MCG/ML VIAL ONE (20:02)
[2016-06-30 20:54] VITALS: BP 134/87; PULSE 82; RESP 14
[2016-06-30 20:59] VITALS: BP 121/85; PULSE 80; RESP 14
[2016-06-30] MEDS ORDERED: FENTAnyl 50 MCG/ML VIAL IV PRN ×2 (21:00)
[2016-06-30] MEDS ORDERED: HYDROmorphONE (0.2 MG/ML) 10ML SYG IV PRN ×3 (21:00)
[2016-06-30] MEDS ORDERED: OXYCODONE/ACETAMINOPHEN (5/325) TAB PO PRN (21:00)
[2016-06-30] MEDS ORDERED: DIPHENHYDRAMINE 50 MG INJ IV PRN (21:00)
[2016-06-30] MEDS ORDERED: ONDANSETRON 4 MG INJ IV PRN (21:00)
[2016-06-30] MEDS ORDERED: MEPERIDINE 25 MG INJ IV PRN (21:00)
[2016-06-30] MEDS ORDERED: METOCLOPRAMIDE 10 MG INJ IV PRN (21:00)
[2016-06-30] MEDS ORDERED: MEPERIDINE 25 MG INJ ONE (21:02)
[2016-06-30] MEDS ORDERED: ONDANSETRON 4 MG INJ ONE (21:02)
[2016-06-30 21:04] VITALS: BP 118/83; PULSE 80; RESP 16
[2016-06-30 21:09] VITALS: BP 125/86; PULSE 81; RESP 16
[2016-06-30] MEDS: CEFTRIAXONE 1 GM/50 ML (PMX) 50 ML IVPB SCH (22:10)
[2016-06-30 22:30] VITALS: BP 136/70; PULSE 88; RESP 21
--- NOTE | 2016-06-30 22:32 | OPR ---
Date/Time of Note Date/Time of Note DATE: 06/30/16 TIME: 22:32 CHARLIE GLEASON DPM Jun 30, 2016 22:32
--- NOTE | 2016-06-30 23:12 | CONS ---
Date/Time of Note Date/Time of Note DATE: 06/30/16 TIME: 13:12 Assessment/Plan Assessment/Plan Chief Complaint/Hosp Course Subjective: Alert, feels ok, no fevers, nad, awaiting for surgery Micro: wound cx + Strep/MSSA, urine cx + C albicans Abx: Diflucan, Rocephin, Flagyl PHYSICAL EXAMINATION: GENERAL: The patient is a well-developed, obese male, alert, responsive, in no acute distress. VITAL SIGNS: Stable. He is afebrile. SKIN: Without generalized rash. HEENT: Within normal limits. NECK: Supple. LYMPH NODES: None palpable. CHEST: Decreased breath sounds at the bases. HEART: Without murmur or gallop. ABDOMEN: Soft, nontender, + BT. EXTREMITIES: Plantar ulcer of the right foot with ulceration between the right great toe and right second toe with foul- smelling purulent discharge. Assessment: 1. SIRS 2. R foot cellulitis/gangrene, possible OM per MRI 3. DM Plan: Clinically stable, continue Rocephin, pending debridement [facility] staff Problems: Consultation Date/Type/Reason Admit Date/Time Jun 25, 2016 at 23:43 Type of Consultation: ID Exam/Review of Systems Vital Signs Vitals Vital Signs Date Time Temp Pulse Resp B/P Pulse Ox O2 Delivery O2 Flow Rate FiO2 06/30/16 21:09 81 16 125/86 96 Room Air 06/30/16 20:54 98.0 Intake and Output 06/29/16 06/29/16 06/30/16 15:00 23:00 07:00 Intake Total 1050 ml 400 ml Balance 1050 ml 400 ml Results Result Diagram: 06/30/16 0435 06/30/16 0435 Results 24 hrs Laboratory Tests Test 06/30/16 02:25 06/30/16 04:35 06/30/16 07:50 06/30/16 11:55 Bedside Glucose 167 225 H 209 Anion Gap 13 Basophils # 0.1 Basophils % 0.4 Blood Urea Nitrogen 12 Calcium Level 9.3 Carbon Dioxide Level 33 H Chloride Level 96 L Creatinine 0.53 L Eosinophils # 0.3 Eosinophils % 2.7 Glucose Level 188 Hematocrit 41.1 L Hemoglobin 14.5 Lymphocytes # 3.0 H Lymphocytes % 23.6 Mean Corpuscular Hemoglobin 32.0 Mean Corpuscular Hemoglobin Concent 35.3 Mean Corpuscular Volume 90.6 Mean Platelet Volume 7.8 Monocytes # 0.8 Monocytes % 6.7 Neutrophils # 8.4 H Neutrophils % 66.6 Nucleated Red Blood Cells # 0.0 Nucleated Red Blood Cells % 0.0 Platelet Count 357 # Potassium Level 3.9 Red Blood Count 4.53 L Red Cell Distribution Width 12.6 Sodium Level 138 White Blood Count 12.6 H Test 06/30/16 14:41 06/30/16 16:50 06/30/16 21:59 Bedside Glucose 258 H 231 H 168 Medications Medications Current Medications Heparin Sodium (Porcine) (Heparin (5000 Units/0.5 ml)) 5,000 unit BID SC Last administered on 06/30/16 09:02; Admin Dose 5,000 UNIT; Start 06/26/16 at 09:00 Zolpidem Tartrate (Ambien) 10 mg HS PRN PO INSOMNIA Last administered on 22:49; Admin Dose 10 MG; Start 06/26/16 at 02:00 Acetaminophen (Tylenol Tab) 650 mg Q6H PRN PO PAIN AND OR ELEVATED TEMP Last administered on 06/28/16 20:27; Admin Dose 650 MG; Start 06/26/16 at 02:00 Diagnostic Test (Pha) (Accucheck) 1 ea 02 XX Last administered on 06/27/16 02: 00; Admin Dose 1 EA; Start 06/26/16 at 02:00 Miscellaneous Information 1 ea NOTE XX ; Start 06/26/16 at 02:00 Glucose (Glutose) 15 gm Q15M PRN PO DECREASED GLUCOSE; Start 06/26/16 at 02:00 Glucose (Glutose) 22.5 gm Q15M PRN PO DECREASED GLUCOSE; Start 06/26/16 at 02:00 Dextrose (D50w Syringe) 25 ml Q15M PRN IV DECREASED GLUCOSE; Start 06/26/16 at 02:00 Dextrose (D50w Syringe) 50 ml Q15M PRN IV DECREASED GLUCOSE; Start 06/26/16 at 02:00 Glucagon (Glucagen) 1 mg Q15M PRN IM DECREASED GLUCOSE; Start 06/26/16 at 02:00 Glucose (Glutose) 15 gm Q15M PRN BUCCAL DECREASED GLUCOSE; Start 06/26/16 at 02: 00 Acetaminophen/ Hydrocodone Bitart ([place] (5/325)) 1 tab Q4H PRN PO pain Last administered on 06/30/16 06:00; Admin Dose 1 TAB; Start 06/26/16 at 17:00 Fluconazole 100 mg 100 mg DAILY PO Last administered on 06/30/16 09:01; Admin Dose 100 MG; Start 06/27/16 at 13:00 Ceftriaxone Sodium (Rocephin) 50 ml @ 100 mls/hr Q24H IVPB Last administered on 06/30/16 22:10; Admin Dose 100 MLS/HR; Start 06/27/16 at 20:30 Sodium Hypochlorite (Dakin'S (1/4 Strength)) 1 applic DAILY IRR Last administered on 06/30/16 09:03; Admin Dose 1 APPLIC; Start 06/29/16 at 17:00 Metronidazole (Flagyl) 500 mg Q8 PO Last administered on 06/30/16 22:45; Admin Dose 500 MG; Start 06/29/16 at 22:00 Insulin Glargine (Lantus) 30 unit DAILY@20 SC Last administered on 06/30/16 22: 10; Admin Dose 30 UNIT; Start 06/30/16 at 20:00 HUNTER DIETZ NP Jun 30, 2016 23:12
[2016-07-01] MEDS: ACCUCHECK XX SCH (02:00)
--- NOTE | 2016-07-01 02:04 | RADRPT ---
PROCEDURE: XR Right Ankle. CLINICAL INDICATION: Postoperative evaluation of the right ankle. TECHNIQUE: AP, oblique and lateral views of the right ankle were performed. COMPARISON: None. FINDINGS: There is normal mineralization and alignment. No acute fracture or osseous lesion is identified. The joints are normal. The soft tissues are unremarkable. Plantar and posterior dorsal calcaneal enthesophytes. IMPRESSION: Unremarkable right ankle. RPTAT: [facility] Physician Stephan Date Time Electronically viewed and signed by Physician Stephan on 07/01/2016 02:03 RS/
[2016-07-01] MEDS: metroNIDAZOLE 500 MG TAB PO SCH ×3 (05:22→21:32)
[2016-07-01 06:28] LABS: BASOPHILS % 0.4 % (0.0-2.0); EOSINOPHILS # 0.3 10^3/ul (0.0-0.5); EOSINOPHILS % 3.1 % (0.0-7.0); HEMATOCRIT 40.4 % (42.0-52.0); HEMOGLOBIN 14.1 g/dl (14.0-18.0); LYMPHOCYTES # 2.6 10^3/ul (0.8-2.9); LYMPHOCYTES % 24.3 % (15.0-51.0); MEAN CORPUSCULAR HEMOGLOBIN 31.8 pg (29.0-33.0); MEAN CORPUSCULAR HGB CONC 34.8 g/dl (32.0-37.0); MEAN CORPUSCULAR VOLUME 91.2 fl (82.0-101.0); MEAN PLATELET VOLUME 7.6 fl (7.4-10.4); MONOCYTE # 0.8 10^3/ul (0.3-0.9); MONOCYTES % 7.3 % (0.0-11.0); NEUTROPHIL # 6.8 10^3/ul (1.6-7.5); NEUTROPHILS % 64.9 % (39.0-77.0); PLATELET COUNT 380 10^3/UL (140-440); RED BLOOD COUNT 4.43 10^6/ul (4.70-6.10); RED CELL DISTRIBUTION WIDTH 12.9 % (11.5-14.5); UNCORRECTED WBC 10.5 10^3/ul (4.8-10.8); WHITE BLOOD COUNT 10.5 10^3/ul (4.8-10.8)
[2016-07-01 06:43] LABS: CONDITION 1
[2016-07-01 06:47] LABS: POTASSIUM 3.7 mmol/L (3.5-5.1)
[2016-07-01 06:48] LABS: CHOL/HDL RATIO 2.9 RATIO
[2016-07-01 06:50] LABS: CREATININE 0.5 mg/dl (0.61-1.24)
[2016-07-01 07:48] VITALS: BP 129/86; RESP 18
[2016-07-01] MEDS: INSULIN ASPART [NOVOLOG] 3 ML PEN SC SCH ×7 (08:08→21:00)
[2016-07-01] MEDS: HEPARIN 5,000 UNIT/0.5 ML SYG SC SCH ×2 (08:09→21:30)
[2016-07-01] MEDS: FLUCONAZOLE 100 MG TAB PO SCH (08:10)
[2016-07-01] MEDS: metFORMIN 500 MG TAB PO SCH ×2 (08:10→17:19)
[2016-07-01] MEDS: HYDROCODONE/APAP (5/325) TAB PO PRN (08:12)
[2016-07-01] MEDS: SODIUM HYPOCHLORITE 0.125% 473 ML BTL IRR SCH (09:00)
--- NOTE | 2016-07-01 14:41 | PN ---
Date/Time of Note Date/Time of Note DATE: 07/01/16 TIME: 14:36 Assessment/Plan VTE Prophylaxis VTE Prophylaxis Intervention: LMWH Lines/Catheters IV C[facility]ter Type [facility]from [facility] Urinary Cath still in place: No Assessment/Plan Chief Complaint/Hosp Course Assessment and plan 1. Osteomyelitis of the right foot Infectious disease and podiatry has been consulted Continue broad-spectrum IV antibiotics Status post I&D on 06/30/2016 (2) Foot abscess, right Status post I&D , follow podiatry recommendations (3) Diabetes, polyneuropathy Continue blood glucose monitoring and treatment Consider Neurontin (4) Diabetes mellitus type: type 2 Continue low-carb diet, insulin and insulin sliding scale We will continue monitor patient closely for recommendation management treatment as clinical course Problems: Subjective 24 Hr Interval Summary Free Text/Dictation Postop day #1 Patient denies any chest pain or shortness of breath Minimal pain in his right foot Exam/Review of Systems Vital Signs Vitals Vital Signs Date Time Temp Pulse Resp B/P Pulse Ox O2 Delivery O2 Flow Rate FiO2 07/01/16 07:48 98.8 81 18 129/86 92 06/30/16 22:30 Room Air Intake and Output 06/30/16 06/30/16 07/01/16 15:00 23:00 07:00 Intake Total 730 ml 300 ml Output Total 2 ml Balance 728 ml 300 ml Exam General: The patient is well-developed, Not in acute distress. HEENT: Atraumatic, normocephalic. The pupils are equal and round . Neck: Supple with full range of motion. Chest: Normal expansion of the thorax during inspiration Lungs: Clear to auscultation bilaterally Heart: Normal S1-S2, Regular rhythm and rate. Abdomen: Soft , nontender, nondistended , bowel sounds are present. Extremities: Right foot in dry dressing/postop, no edema no cyanosis Neurologic: Normal mental status,The patient is awake, alert and oriented . Results Result Diagram: 07/01/16 0508 07/01/16 0508 Results 24 hrs Laboratory Tests Test 06/30/16 14:41 06/30/16 16:50 06/30/16 21:59 07/01/16 05:08 Bedside Glucose 258 H 231 H 168 Anion Gap 14 Basophils # 0.0 Basophils % 0.4 Blood Urea Nitrogen 12 Calcium Level 9.0 Carbon Dioxide Level 31 Chloride Level 99 Cholesterol Level 91 L Cholesterol/HDL Ratio 2.9 Creatinine 0.50 L Eosinophils # 0.3 Eosinophils % 3.1 Glucose Level 214 HDL Cholesterol 31 Hematocrit 40.4 L Hemoglobin 14.1 LDL Cholesterol, Calculated 30 Lymphocytes # 2.6 Lymphocytes % 24.3 Mean Corpuscular Hemoglobin 31.8 Mean Corpuscular Hemoglobin Concent 34.8 Mean Corpuscular Volume 91.2 Mean Platelet Volume 7.6 Monocytes # 0.8 Monocytes % 7.3 Neutrophils # 6.8 Neutrophils % 64.9 Nucleated Red Blood Cells # 0.0 Nucleated Red Blood Cells % 0.0 Platelet Count 380 Potassium Level 3.7 Red Blood Count 4.43 L Red Cell Distribution Width 12.9 Sodium Level 140 Triglycerides Level 150 H White Blood Count 10.5 Test 07/01/16 07:36 07/01/16 12:11 Bedside Glucose 216 227 H Medications Medications Current Medications Heparin Sodium (Porcine) (Heparin (5000 Units/0.5 ml)) 5,000 unit BID SC Last administered on 07/01/16 08:09; Admin Dose 5,000 UNIT; Start 06/26/16 at 09:00 Zolpidem Tartrate (Ambien) 10 mg HS PRN PO INSOMNIA Last administered on 22:49; Admin Dose 10 MG; Start 06/26/16 at 02:00 Acetaminophen (Tylenol Tab) 650 mg Q6H PRN PO PAIN AND OR ELEVATED TEMP Last administered on 06/28/16 20:27; Admin Dose 650 MG; Start 06/26/16 at 02:00 Diagnostic Test (Pha) (Accucheck) 1 ea 02 XX Last administered on 06/27/16 02: 00; Admin Dose 1 EA; Start 06/26/16 at 02:00 Miscellaneous Information 1 ea NOTE XX ; Start 06/26/16 at 02:00 Glucose (Glutose) 15 gm Q15M PRN PO DECREASED GLUCOSE; Start 06/26/16 at 02:00 Glucose (Glutose) 22.5 gm Q15M PRN PO DECREASED GLUCOSE; Start 06/26/16 at 02:00 Dextrose (D50w Syringe) 25 ml Q15M PRN IV DECREASED GLUCOSE; Start 06/26/16 at 02:00 Dextrose (D50w Syringe) 50 ml Q15M PRN IV DECREASED GLUCOSE; Start 06/26/16 at 02:00 Glucagon (Glucagen) 1 mg Q15M PRN IM DECREASED GLUCOSE; Start 06/26/16 at 02:00 Glucose (Glutose) 15 gm Q15M PRN BUCCAL DECREASED GLUCOSE; Start 06/26/16 at 02: 00 Acetaminophen/ Hydrocodone Bitart ([place] (5/325)) 1 tab Q4H PRN PO pain Last administered on 07/01/16 08:12; Admin Dose 1 TAB; Start 06/26/16 at 17:00 Fluconazole 100 mg 100 mg DAILY PO Last administered on 07/01/16 08:10; Admin Dose 100 MG; Start 06/27/16 at 13:00 Ceftriaxone Sodium (Rocephin) 50 ml @ 100 mls/hr Q24H IVPB Last administered on 06/30/16 22:10; Admin Dose 100 MLS/HR; Start 06/27/16 at 20:30 Sodium Hypochlorite (Dakin'S (1/4 Strength)) 1 applic DAILY IRR Last administered on 06/30/16 09:03; Admin Dose 1 APPLIC; Start 06/29/16 at 17:00 Metronidazole (Flagyl) 500 mg Q8 PO Last administered on 07/01/16 13:35; Admin Dose 500 MG; Start 06/29/16 at 22:00 Insulin Glargine (Lantus) 30 unit DAILY@20 SC Last administered on 06/30/16 22: 10; Admin Dose 30 UNIT; Start 06/30/16 at 20:00 DARYL KNOTT MD Jul 01, 2016 14:40
--- NOTE | 2016-07-01 16:24 | CONS ---
Date/Time of Note Date/Time of Note DATE: 07/01/16 TIME: 16:22 Assessment/Plan Assessment/Plan Chief Complaint/Hosp Course Subjective: Alert, feels ok, no fevers, nad, awaiting for surgery Micro: wound cx + Strep/MSSA, urine cx + C albicans Abx: Diflucan, Rocephin, Flagyl PHYSICAL EXAMINATION: GENERAL: The patient is a well-developed, obese male, alert, responsive, in no acute distress. VITAL SIGNS: Stable. He is afebrile. SKIN: Without generalized rash. HEENT: Within normal limits. NECK: Supple. LYMPH NODES: None palpable. CHEST: Decreased breath sounds at the bases. HEART: Without murmur or gallop. ABDOMEN: Soft, nontender, + BT. EXTREMITIES: Plantar ulcer of the right foot with ulceration between the right great toe and right second toe with foul- smelling purulent discharge. Assessment: 1. SIRS 2. R foot cellulitis/gangrene, possible OM per MRI, s/p debridement 06/30/16 3. DM Plan: Clinically stable, continue Rocephin, wound care per podiatry rec-s [facility] staff Problems: Consultation Date/Type/Reason Admit Date/Time Jun 25, 2016 at 23:43 Type of Consultation: ID Exam/Review of Systems Vital Signs Vitals Vital Signs Date Time Temp Pulse Resp B/P Pulse Ox O2 Delivery O2 Flow Rate FiO2 07/01/16 07:48 98.8 81 18 129/86 92 06/30/16 22:30 Room Air Intake and Output 06/30/16 06/30/16 07/01/16 15:00 23:00 07:00 Intake Total 730 ml 300 ml Output Total 2 ml Balance 728 ml 300 ml Results Result Diagram: 07/01/16 0508 07/01/16 0508 Results 24 hrs Laboratory Tests Test 06/30/16 16:50 06/30/16 21:59 07/01/16 05:08 07/01/16 07:36 Bedside Glucose 231 H 168 216 Anion Gap 14 Basophils # 0.0 Basophils % 0.4 Blood Urea Nitrogen 12 Calcium Level 9.0 Carbon Dioxide Level 31 Chloride Level 99 Cholesterol Level 91 L Cholesterol/HDL Ratio 2.9 Creatinine 0.50 L Eosinophils # 0.3 Eosinophils % 3.1 Glucose Level 214 HDL Cholesterol 31 Hematocrit 40.4 L Hemoglobin 14.1 LDL Cholesterol, Calculated 30 Lymphocytes # 2.6 Lymphocytes % 24.3 Mean Corpuscular Hemoglobin 31.8 Mean Corpuscular Hemoglobin Concent 34.8 Mean Corpuscular Volume 91.2 Mean Platelet Volume 7.6 Monocytes # 0.8 Monocytes % 7.3 Neutrophils # 6.8 Neutrophils % 64.9 Nucleated Red Blood Cells # 0.0 Nucleated Red Blood Cells % 0.0 Platelet Count 380 Potassium Level 3.7 Red Blood Count 4.43 L Red Cell Distribution Width 12.9 Sodium Level 140 Triglycerides Level 150 H White Blood Count 10.5 Test 07/01/16 12:11 Bedside Glucose 227 H Medications Medications Current Medications Heparin Sodium (Porcine) (Heparin (5000 Units/0.5 ml)) 5,000 unit BID SC Last administered on 07/01/16 08:09; Admin Dose 5,000 UNIT; Start 06/26/16 at 09:00 Zolpidem Tartrate (Ambien) 10 mg HS PRN PO INSOMNIA Last administered on 22:49; Admin Dose 10 MG; Start 06/26/16 at 02:00 Acetaminophen (Tylenol Tab) 650 mg Q6H PRN PO PAIN AND OR ELEVATED TEMP Last administered on 06/28/16 20:27; Admin Dose 650 MG; Start 06/26/16 at 02:00 Diagnostic Test (Pha) (Accucheck) 1 ea 02 XX Last administered on 06/27/16 02: 00; Admin Dose 1 EA; Start 06/26/16 at 02:00 Miscellaneous Information 1 ea NOTE XX ; Start 06/26/16 at 02:00 Glucose (Glutose) 15 gm Q15M PRN PO DECREASED GLUCOSE; Start 06/26/16 at 02:00 Glucose (Glutose) 22.5 gm Q15M PRN PO DECREASED GLUCOSE; Start 06/26/16 at 02:00 Dextrose (D50w Syringe) 25 ml Q15M PRN IV DECREASED GLUCOSE; Start 06/26/16 at 02:00 Dextrose (D50w Syringe) 50 ml Q15M PRN IV DECREASED GLUCOSE; Start 06/26/16 at 02:00 Glucagon (Glucagen) 1 mg Q15M PRN IM DECREASED GLUCOSE; Start 06/26/16 at 02:00 Glucose (Glutose) 15 gm Q15M PRN BUCCAL DECREASED GLUCOSE; Start 06/26/16 at 02: 00 Acetaminophen/ Hydrocodone Bitart ([place] (5/325)) 1 tab Q4H PRN PO pain Last administered on 07/01/16 08:12; Admin Dose 1 TAB; Start 06/26/16 at 17:00 Fluconazole 100 mg 100 mg DAILY PO Last administered on 07/01/16 08:10; Admin Dose 100 MG; Start 06/27/16 at 13:00 Ceftriaxone Sodium (Rocephin) 50 ml @ 100 mls/hr Q24H IVPB Last administered on 06/30/16 22:10; Admin Dose 100 MLS/HR; Start 06/27/16 at 20:30 Sodium Hypochlorite (Dakin'S (1/4 Strength)) 1 applic DAILY IRR Last administered on 06/30/16 09:03; Admin Dose 1 APPLIC; Start 06/29/16 at 17:00 Metronidazole (Flagyl) 500 mg Q8 PO Last administered on 07/01/16 13:35; Admin Dose 500 MG; Start 06/29/16 at 22:00 Insulin Glargine (Lantus) 35 unit DAILY@20 SC ; Start 07/01/16 at 20:00 HUNTER DIETZ NP Jul 01, 2016 16:23
[2016-07-01 19:52] VITALS: BP 131/78; RESP 20
[2016-07-01] MEDS ORDERED: INSULIN GLARGINE [LANtus] 3 ML PEN SC SCH (20:00)
[2016-07-01] MEDS: CEFTRIAXONE 1 GM/50 ML (PMX) 50 ML IVPB SCH (21:29)
[2016-07-02] MEDS: ACCUCHECK XX SCH (02:00)
[2016-07-02] MEDS: metroNIDAZOLE 500 MG TAB PO SCH ×2 (04:30→13:13)
[2016-07-02 06:08] LABS: BASOPHIL # 0.1 10^3/ul (0.0-0.1); BASOPHILS % 0.7 % (0.0-2.0); EOSINOPHILS # 0.4 10^3/ul (0.0-0.5); EOSINOPHILS % 3.9 % (0.0-7.0); HEMATOCRIT 41.2 % (42.0-52.0); HEMOGLOBIN 14.1 g/dl (14.0-18.0); LYMPHOCYTES # 2.8 10^3/ul (0.8-2.9); LYMPHOCYTES % 30.8 % (15.0-51.0); MEAN CORPUSCULAR HEMOGLOBIN 31.5 pg (29.0-33.0); MEAN CORPUSCULAR HGB CONC 34.3 g/dl (32.0-37.0); MEAN CORPUSCULAR VOLUME 91.7 fl (82.0-101.0); MEAN PLATELET VOLUME 7.6 fl (7.4-10.4); MONOCYTE # 0.8 10^3/ul (0.3-0.9); MONOCYTES % 8.3 % (0.0-11.0); NEUTROPHIL # 5.2 10^3/ul (1.6-7.5); NEUTROPHILS % 56.3 % (39.0-77.0); PLATELET COUNT 385 10^3/UL (140-440); RED BLOOD COUNT 4.49 10^6/ul (4.70-6.10); RED CELL DISTRIBUTION WIDTH 12.9 % (11.5-14.5); UNCORRECTED WBC 9.1 10^3/ul (4.8-10.8); WHITE BLOOD COUNT 9.1 10^3/ul (4.8-10.8)
[2016-07-02 06:44] LABS: POTASSIUM 3.9 mmol/L (3.5-5.1)
[2016-07-02 06:46] LABS: CREATININE 0.49 mg/dl (0.61-1.24)
[2016-07-02 06:47] LABS: CALCIUM 9.1 mg/dl (8.4-10.2)
[2016-07-02 07:10] LABS: CONDITION 1
[2016-07-02 08:18] VITALS: BP 142/83; RESP 20
[2016-07-02] MEDS: SODIUM HYPOCHLORITE 0.125% 473 ML BTL IRR SCH (09:00)
[2016-07-02] MEDS: metFORMIN 500 MG TAB PO SCH ×2 (09:39→17:51)
[2016-07-02] MEDS: FLUCONAZOLE 100 MG TAB PO SCH (09:39)
[2016-07-02] MEDS: HEPARIN 5,000 UNIT/0.5 ML SYG SC SCH (09:42)
[2016-07-02] MEDS: INSULIN ASPART [NOVOLOG] 3 ML PEN SC SCH ×6 (09:56→17:57)
--- NOTE | 2016-07-02 13:52 | PDOCDIS ---
Discharge Instructions CONDITION Patient Condition: Stable HOME CARE INSTRUCTIONS: Special Diet: 1800 william ACTIVITY: Activity Restrictions: Slowly Increase Activity Rest between Activity Avoid heavy lifting Do not operate Power Tool Avoid Heavy Housework Keep Limb Elevated FOLLOW UP/APPOINTMENTS Appointments Follow up with podiatry as outpatient Follow up with [facility] in 1 week DARYL KNOTT MD Jul 02, 2016 13:52
[2016-07-02] MEDS ORDERED: FLUC100T PO (13:57)
[2016-07-02] MEDS ORDERED: LANT3I SC (13:57)
[2016-07-02] MEDS ORDERED: LEVO500T72 PO (13:57)
[2016-07-02] MEDS ORDERED: ASPI-664 PO (13:57)
[2016-07-02] MEDS ORDERED: METF500T PO (13:57)
[2016-07-02] MEDS ORDERED: HYDR-3498 PO (13:57)
[2016-07-02] MEDS ORDERED: LISI-313 PO (14:06)
--- NOTE | 2016-07-02 16:31 | DS ---
DATE OF ADMISSION: 06/25/2016 DATE OF DISCHARGE: 07/02/2016 CONSULTANTS: 1. Podiatry. 2. Infectious disease. DISCHARGE DIAGNOSES: 1. Systemic inflammatory response syndrome secondary to right foot cellulitis/gangrene. 2. Right foot cellulitis, gangrene, status post incision and drainage of the right foot. 3. Diabetes mellitus. The patient will be discharged home on Lantus and metformin. 3. Essential hypertension. Discharged on lisinopril. MEDICATIONS: 1. Lantus 38 units subq q.p.m. 2. Metformin 1000 mg p.o. b.i.d. 3. Aspirin 81 mg daily. 4. Lisinopril 5 mg p.o. daily. 5. Percocet 5/325 one tab p.o. q. 8 hours p.r.n. 6. Levaquin 500 mg 1 tab p.o. daily #10. 7. Fluconazole 100 mg 1 tab p.o. daily. ALLERGIES: NO KNOWN DRUG ALLERGIES. HOSPITAL COURSE: This is a 45-year-old gentleman with past medical history of diabetes mellitus who presented to the ER with chronic right foot infection for more than 3 months. The patient had righ t plantar foot ulceration for more than 3 months. He was taking antibiotics, clindamycin without an y response. He has developed an ulcer between the right great toe and right second toe with a foul smelling purulent discharge, swollen and painful for the last 3 days prior to admission. Upon arriv al to ER, patient had a foot x-ray which showed concern for plantar ulceration of soft tissue but th e forefoot of the great toe, unable to exclude cellulitis. The plain film evidence of peritonitis a nd osteomyelitis of the right foot. Podiatry and infectious disease doctor was consulted. MRI of t he foot showed small skin ulcer within the subcutaneous soft tissue along the plantar aspect of the right foot over the first tarsophalangeal joint and proximal phalanx with edema but no drainable acc ess, bone marrow edema, slightly abnormal marrow signal and cortical irregularity, scalloping along the plantar aspect of the first proximal phalanx which can be seen with osteomyelitis. This mid def ormity of the proximal phalanx can be seen as acute or chronic osteomyelitis. It could be early ost eomyelitis involving the first distal phalanx as well as mild to moderate osteoarthritis of the firs t metaphalangeal joint, hammertoe deformity within the metaphalangeal joint. Patient was seen and e valuated by infectious disease doctor and podiatry. He was taken to OR on 06/30/2016 for ID and as per his evaluation, there was no osteomyelitis of the surgery. The patient was continued on Rocephi n during the course of hospitalization. At this time, the patient is afebrile. WBC is within sudheer l limits at 9.1, hemoglobin 14.1, hematocrit 42.2, platelet 385. Sodium 140, potassium 3.7, chlorid e 99, bicarbonate 31, BUN 12, creatinine 0.50, glucose 214, calcium 9.0, hemoglobin A1c 10.4, trigly ceride 150, total cholesterol 91, LDL 30, HDL 31. At this time, the patient is stable as per podiat ry and medical team to be discharged home and will be set up with home health for wound care. Also, will be followed up at [facility] for further evaluation and treatment in 7 to 10 days. At this time, the patient has been instructed to continue to monitor his blood glucose and he has been seen and evalu ated by the host coordinator. At this time, he is medically stable for discharge. Dictated By: DARYL HARE/NTS Conf#: [id number] DID#: [id number]
--- NOTE | 2016-07-02 16:58 | CONS ---
Date/Time of Note Date/Time of Note DATE: 07/02/16 TIME: 16:57 Assessment/Plan Assessment/Plan Chief Complaint/Hosp Course Subjective: Alert, feels ok, no fevers, nad, awaiting for surgery Micro: wound cx + Strep/MSSA, urine cx + C albicans Abx: Diflucan, Rocephin, Flagyl PHYSICAL EXAMINATION: GENERAL: The patient is a well-developed, obese male, alert, responsive, in no acute distress. VITAL SIGNS: Stable. He is afebrile. SKIN: Without generalized rash. HEENT: Within normal limits. NECK: Supple. LYMPH NODES: None palpable. CHEST: Decreased breath sounds at the bases. HEART: Without murmur or gallop. ABDOMEN: Soft, nontender, + BT. EXTREMITIES: Plantar ulcer of the right foot with ulceration between the right great toe and right second toe with foul- smelling purulent discharge. Assessment: 1. SIRS 2. R foot cellulitis/gangrene, possible OM per MRI, s/p debridement 06/30/16 3. DM Plan: Clinically stable, continue Rocephin, wound care per podiatry rec-s, anticipate dc on oral Bactrim [facility] staff Problems: Consultation Date/Type/Reason Admit Date/Time Jun 25, 2016 at 23:43 Type of Consultation: ID Exam/Review of Systems Vital Signs Vitals Vital Signs Date Time Temp Pulse Resp B/P Pulse Ox O2 Delivery O2 Flow Rate FiO2 07/02/16 08:18 98.5 80 20 142/83 98 06/30/16 22:30 Room Air Intake and Output 07/01/16 07/01/16 07/02/16 15:00 23:00 07:00 Intake Total 820 ml 600 ml Balance 820 ml 600 ml Results Result Diagram: 07/02/16 0515 07/02/16 0515 Results 24 hrs Laboratory Tests Test 07/01/16 20:18 07/02/16 05:15 07/02/16 08:16 07/02/16 12:00 Bedside Glucose 179 169 211 Anion Gap 13 Basophils # 0.1 Basophils % 0.7 Blood Urea Nitrogen 14 Calcium Level 9.1 Carbon Dioxide Level 31 Chloride Level 97 Creatinine 0.49 L Eosinophils # 0.4 Eosinophils % 3.9 Glucose Level 186 Hematocrit 41.2 L Hemoglobin 14.1 Lymphocytes # 2.8 Lymphocytes % 30.8 Mean Corpuscular Hemoglobin 31.5 Mean Corpuscular Hemoglobin Concent 34.3 Mean Corpuscular Volume 91.7 Mean Platelet Volume 7.6 Monocytes # 0.8 Monocytes % 8.3 Neutrophils # 5.2 Neutrophils % 56.3 Nucleated Red Blood Cells # 0.0 Nucleated Red Blood Cells % 0.0 Platelet Count 385 Potassium Level 3.9 Red Blood Count 4.49 L Red Cell Distribution Width 12.9 Sodium Level 137 White Blood Count 9.1 Medications Medications Current Medications Heparin Sodium (Porcine) (Heparin (5000 Units/0.5 ml)) 5,000 unit BID SC Last administered on 07/02/16 09:42; Admin Dose 5,000 UNIT; Start 06/26/16 at 09:00 Zolpidem Tartrate (Ambien) 10 mg HS PRN PO INSOMNIA Last administered on 22:49; Admin Dose 10 MG; Start 06/26/16 at 02:00 Acetaminophen (Tylenol Tab) 650 mg Q6H PRN PO PAIN AND OR ELEVATED TEMP Last administered on 06/28/16 20:27; Admin Dose 650 MG; Start 06/26/16 at 02:00 Diagnostic Test (Pha) (Accucheck) 1 ea 02 XX Last administered on 06/27/16 02: 00; Admin Dose 1 EA; Start 06/26/16 at 02:00 Miscellaneous Information 1 ea NOTE XX ; Start 06/26/16 at 02:00 Glucose (Glutose) 15 gm Q15M PRN PO DECREASED GLUCOSE; Start 06/26/16 at 02:00 Glucose (Glutose) 22.5 gm Q15M PRN PO DECREASED GLUCOSE; Start 06/26/16 at 02:00 Dextrose (D50w Syringe) 25 ml Q15M PRN IV DECREASED GLUCOSE; Start 06/26/16 at 02:00 Dextrose (D50w Syringe) 50 ml Q15M PRN IV DECREASED GLUCOSE; Start 06/26/16 at 02:00 Glucagon (Glucagen) 1 mg Q15M PRN IM DECREASED GLUCOSE; Start 06/26/16 at 02:00 Glucose (Glutose) 15 gm Q15M PRN BUCCAL DECREASED GLUCOSE; Start 06/26/16 at 02: 00 Acetaminophen/ Hydrocodone Bitart ([place] (5/325)) 1 tab Q4H PRN PO pain Last administered on 07/01/16 08:12; Admin Dose 1 TAB; Start 06/26/16 at 17:00 Fluconazole 100 mg 100 mg DAILY PO Last administered on 07/02/16 09:39; Admin Dose 100 MG; Start 06/27/16 at 13:00 Ceftriaxone Sodium (Rocephin) 50 ml @ 100 mls/hr Q24H IVPB Last administered on 07/01/16 21:29; Admin Dose 100 MLS/HR; Start 06/27/16 at 20:30 Sodium Hypochlorite (Dakin'S (1/4 Strength)) 1 applic DAILY IRR Last administered on 06/30/16 09:03; Admin Dose 1 APPLIC; Start 06/29/16 at 17:00 Metronidazole (Flagyl) 500 mg Q8 PO Last administered on 07/02/16 13:13; Admin Dose 500 MG; Start 06/29/16 at 22:00 Insulin Glargine (Lantus) 35 unit DAILY@20 SC Last administered on 07/01/16 21: 31; Admin Dose 35 UNIT; Start 07/01/16 at 20:00 HUNTER DIETZ NP Jul 02, 2016 16:58
== END 2016-07-02 20:46 | disposition home or self-care (01) | DRG 264 ==
LOC: E/R 16:24 → PP2 23:43 → E/R 06-26 00:46
PROVIDERS: ADMIT Internal Medicine; ATTEND Internal Medicine
PROC: 0JBQ0ZZ Excision of Right Foot Subcutaneous Tissue and Fascia, Open Approach (ICD-10-PCS; principal; 2016-06-30 19:30)
DX: E11.52 Type 2 diabetes mellitus with diabetic peripheral angiopathy with gangrene (principal); E11.42 Type 2 diabetes mellitus with diabetic polyneuropathy; E11.621 Type 2 diabetes mellitus with foot ulcer; L03.115 Cellulitis of right lower limb; M86.671 Other chronic osteomyelitis, right ankle and foot; L97.514 Non-pressure chronic ulcer of other part of right foot with necrosis of bone; B95.61 Methicillin susceptible Staphylococcus aureus infection as the cause of diseases classified elsewhere; B95.1 Streptococcus, group B, as the cause of diseases classified elsewhere; B95.0 Streptococcus, group A, as the cause of diseases classified elsewhere; Z16.23 Resistance to quinolones and fluoroquinolones; Z16.11 Resistance to penicillins; I10 Essential (primary) hypertension; Z79.4 Long term (current) use of insulin; Z79.82 Long term (current) use of aspirin
CPT/HCPCS: 36415; 71010; 73630; 73718; 80048; 80053; 80061; 80202; 81001; 81003; 82565; 82962; 83036; 83605; 84484; 84520; 85025; 85610; 85651; 85730; 86803; 87040; 87070; 87081; 87086; 87340; 90686; 93005; 93923; 96374; 96375; J0692; J0696; J1815; J2175; J2250; J2405; J2543; J3010; J3370; J7050